=== PATIENT | male | born 1940 | race Caucasian/White ===

== ENCOUNTER 2017-02-26 19:38 | Emergency (ER) | payer OTHER, BC ==
[2017-02-26 19:53] VITALS: PULSE 84; BMI 29.5
[2017-02-26] MEDS ORDERED: ONDANSETRON 4 MG/2 ML VIAL IVPB ONE (20:03)
--- NOTE | 2017-02-26 20:07 | PDOC ---
Attending Attestation - Resident Resident Name: Jaime Don - ED Attending Attestation I have performed the following: I have examined & evaluated the patient, The case was reviewed & discussed with the resident, I agree w/resident's findings & plan, Exceptions are as noted - HPI HPI: 02/26/17 20:08 Pt c/o abdominal pain and umbilcal hernia that has gotten worse the last two weeks - Physicial Exam PE: 02/26/17 20:09 *Physical Exam General Appearance: Yes: Appropriately Dressed. No: Apparent Distress, Intoxicated HEENT: positive: EOMI, PÉREZ, Normal ENT Inspection, Normal Voice, TMs Normal, Pharynx Normal. negative: Pale Conjunctivae, Photophobia, Scleral Icterus (R), Scleral Icterus (L) Neck: positive: Trachea midline, Normal Thyroid, Supple. negative: Tender, Rigid, Carotid bruit, Stridor, Lymphadenopathy (R), Lymphadenopathy (L), Thyromegaly Respiratory/Chest: positive: Lungs Clear, Normal Breath Sounds. negative: Chest Tender, Respiratory Distress, Accessory Muscle Use, Labored Respiration, RES, Crackles, Rales, Rhonchi, Stridor, Wheezing, Dullness Cardiovascular: positive: Regular Rhythm, Regular Rate, S1, S2. negative: Edema , JVD, Murmur, Bradycardia, Tachycardia Vascular Pulses: Dorsalis-Pedis (R): 2+, Doralis-Pedis (L): 2+ Gastrointestinal/Abdominal: positive: Normal Bowel Sounds, Flat, Soft. umbilical defect reducible negative: Tender, Organomegaly, Pulsatile Mass, Increased Bowel Sounds, Decreased BS, Distended, Guarding, Rebound, Hernia, Hepatomegaly, Spleenomegaly Lymphatic: negative: Adenopathy, Tenderness Musculoskeletal: positive: Normal Inspection. negative: CVA Tenderness, Decreased Range of Motion Extremity: positive: Normal Capillary Refill, Normal Inspection, Normal Range of Motion, Pelvis Stable. negative: Tender, Pedal Edema, Swelling, Erythema Integumentary: positive: Normal Color, Dry, Warm. 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 negative: EOM Palsy, Facial Droop, Sensory Deficit 02/26/17 20:12 <Oswaldo Hatfield - Last Filed: 02/26/17 20:12> - Medical Decision Making EXAM#: TYPE/EXAM: RESULT: [id number] CT/ABDOMEN PELVIS CT W/O CONTR Abdomen and pelvis CT (without contrast) Clinical information: fully reducible ventral hernia, no abdominal pain Multiplanar imaging was performed. As requested no intravenous or enteric contrast was administered. No prior CT studies are available at this facility for direct comparison. There is partial imaging of atherosclerotic coronary artery calcifications. A small umbilical hernia is noted into which a very small segment of a mid abdominal small bowel loop mildly bulges. No evidence of pneumoperitoneum, free intraperitoneal fluid or bowel obstruction. There is diffuse colonic diverticulosis without evidence of acute diverticulitis. 0.5 x 0.2 cm and 0.2 cm nonobstructing left renal calculi are seen. There is also a 0.1 cm nonobstructing right renal calculus. A 1 cm left hepatic lobe low-attenuation lesion focus is noted which is difficult to characterize on this exam due to the small size probably representing a cyst or hemangioma. There is a possible subtle 1 cm cyst within the pancreatic tail (transaxial image 50). The remainder the pancreas demonstrates moderate diffuse atrophy. The spleen, gallbladder, and adrenal glands demonstrate no discrete noncontrast pathology. There is no aortic aneurysm. No definite lymphadenopathy is noted. There is moderate to marked atrophy of the right iliopsoas muscle diffusely. No gross intrinsic small bowel pathology is seen. The appendix cannot be definitely visualized. No indirect CT signs of acute appendicitis are visualized. The lower third of the pelvis is obscured due to metallic artifact arising from bilateral hip prostheses. Small left renal hernia containing fat only. Prominent multilevel thoracolumbar degenerative disc changes. Impression: Small umbilical hernia into which a very short segment of a small bowel loop slightly bulges. Possible subtle 1 cm pancreatic L cyst. Correlation with contrast-enhanced MRI is suggested. Alternatively contrast enhanced CT may be performed. A 1 cm left hepatic lobe hypodense focus is noted probably representing a cyst or hemangioma. This finding may also be further evaluated on contrast-enhanced imaging. Reported By: Jose Elias Espana MD 02/26/17 2313 Documentation prepared by Pastora Guerrero, acting as medical social worker for Oswaldo Hatfield DO 02/26/17 23:23 Dr. Orion Leong was paged via phone answering service at this time requesting a call back for doctor to doctor consult. <Pastora Guerrero - Last Filed: 02/26/17 23:24>
[2017-02-26 20:16] LABS: BASOPHIL 0.3 % (0-2.0); EOSINOPHIL 0.5 % (0-4.5); MCHC 34.1 g/dl (32.0-35.9); MEAN CELL VOLUME 90.8 fl (80-96); MEAN PLT VOLUME 8.5 fl (7.5-11.1); NEUTROPHILS 78.1 % (42.8-82.8); PLATELET COUNT 157 K/MM3 (134-434); RDW 13.1 % (11.9-15.9); WHITE BLOOD COUNT 8.5 K/mm3 (4.0-10.0)
--- NOTE | 2017-02-26 20:16 | PDOC ---
History of Present Illness - General Chief Complaint: Pain Stated Complaint: ABDOMINAL Time Seen by Provider: 02/26/17 19:43 History Source: Patient Exam Limitations: No Limitations - History of Present Illness Initial Comments: 02/26/17 20:10 Patient is a 76M with history of Parkinson's, hernia repair, knee, hip and shoulder replacement here today complaining about a mass in his abdomen, located above his umbilicus. He first noticed it a few weeks ago. He describes a mass that comes and goes in his upper abdomen. He endorses assocaited nausea. He denies abdominal pain, vomiting, constipation, fevers and chills. Last bowel movement was this morning. He says that he came in today not because of increased pain, but because he was scared by the mass. He denies history of triple AAA. Past History - Past Medical History Allergies/Adverse Reactions: Allergies Allergy/AdvReac Type Severity Reaction Status Date / Time No Known Allergies Allergy Verified 02/26/17 19:50 Home Medications: Ambulatory Orders Carbidopa/Levodopa [Carbidopa-Levo 25-100 Tab] 1.5 each PO TID 02/07/12 Pramipexole Dihydrochloride [Mirapex -] 0.75 mg PO HS 02/07/12 Rasagiline Mesylate [Azilect] 1 mg PO HS 02/07/12 Aspirin Coated [Ecotrin] 325 mg PO DAILY #30 tablet. 02/09/12 Bimatoprost [Lumigan] 1 drop OU TID 02/26/17 Dorzolamide HCl [Trusopt 2%] 1 drop OU DAILY 02/26/17 Latanoprost 0.005% Eye Drops [Xalatan 0.005% Eye Drops -] 1 drop OU HS 02/26/17 Rotigotine [Neupro] 1 each TD DAILY 02/26/17 Timolol 0.5% [Timoptic 0.5%] 1 drop OU DAILY 02/26/17 CVA: Yes (2011) - Surgical History Orthopedic Surgery: Yes (LOLA KNEE, LOLA HIPS, LOLA SHOULDERS) - Suicide/Smoking/Psychosocial Hx Smoking Status: No Smoking History: Never smoked Have you smoked in the past 12 months: No Number of Cigarettes Smoked Daily: 0 Information on smoking cessation initiated: No Hx Alcohol Use: No Drug/Substance Use Hx: No Substance Use Type: None Hx Substance Use Treatment: No Review of Systems - Review of Systems Comments:: 02/26/17 20:15 GENERAL/CONSTITUTIONAL: No fever or chills. No weakness. HEAD, EYES, EARS, NOSE AND THROAT: No change in vision. No sore throat. CARDIOVASCULAR: No chest pain or shortness of breath RESPIRATORY: No cough, wheezing, or hemoptysis. GASTROINTESTINAL: Positive for nausea. Negative for vomiting, diarrhea or constipation. GENITOURINARY: No dysuria, frequency, or change in urination. SKIN: No rash NEUROLOGIC: No headache, vertigo, loss of consciousness, or change in strength/ sensation. ENDOCRINE: No increased thirst. No abnormal weight change HEMATOLOGIC/LYMPHATIC: No anemia, easy bleeding, or history of blood clots. ALLERGIC/IMMUNOLOGIC: No hives or skin allergy. *Physical Exam - Vital Signs Last Vital Signs Temp Pulse Resp BP Pulse Ox 84 14 183/100 99 02/26/17 19:58 02/26/17 19:48 02/26/17 19:58 02/26/17 19:58 - Physical Exam Comments: 02/26/17 20:16 GENERAL: Awake, alert, and fully oriented, in no acute distress, bilateral hand tremor HEAD: No signs of trauma, normocephalic, atraumatic EYES: PERRLA, EOMI, sclera anicteric, conjunctiva clear ENT: Auricles normal inspection, hearing grossly normal, nares patent, oropharynx clear without exudates. Moist mucosa LUNGS: No distress, speaks full sentences, clear to auscultation bilaterally HEART: Regular rate and rhythm, normal S1 and S2, no murmurs, rubs or gallops, peripheral pulses normal and equal bilaterally. ABDOMEN: Soft, nontender, normoactive bowel sounds. No guarding, no rebound. 4x4 cm reducible hernia above umbilicus EXTREMITIES: Normal inspection, Normal range of motion, no edema. No clubbing or cyanosis. NEUROLOGICAL: Cranial nerves II through XII grossly intact. Normal speech, normal gait, no focal sensorimotor deficits SKIN: Warm, Dry, normal turgor, no rashes or lesions noted. ED Treatment Course - LABORATORY CBC & Chemistry Diagram: 02/26/17 20:10 02/26/17 20:10 - RADIOLOGY Radiology Studies Ordered: Category Date Time Status ABDOMEN & PELVIS CT W/O CONTR [CT] Stat CT Scan 02/26/17 20:08 Ordered Medical Decision Making - Medical Decision Making 02/26/17 20:18 76M with history of hernia repair, parkinson's, and multiple orthopedic surgeries here today complaining of abdominal mass. Mass is a fully reducible hernia. Blood pressure elevated to systolic of 180. No pulsatile masses felt on exam, no history of AAA, low suspicion. Vital signs stable. Will evaluate with labs, ekg and abdominal ct. 02/26/17 20:48 EKG shows normal sinus rhythm with RBBB. Inverted t-waves in II, III, aVF and V3. Troponin added to workup. 02/26/17 21:51 Laboratory Tests 02/26/17 02/26/17 02/26/17 20:10 20:10 20:10 WBC 8.5 D Hgb 14.2 Hct 41.5 Plt Count 157 D INR 1.09 Creatinine 0.9 Creat Clearance w eGFR > 60 Troponin I 02/26/17 20:40 WBC Hgb Hct Plt Count INR Creatinine Creat Clearance w eGFR Troponin I 0.05 D Trop of 0.05, cbc normal, cmp reassuring. 02/26/17 23:21 Prior EKGs reviewed. RBBB in 2011, no images to review. Call out to Dr Leong. CT shows umbilical hernia. Patient informed about pancreatic and liver cyst with recommendations for follow up imaging. 02/26/17 23:29 Spoke with galina Cali with discharge. Will discharge home with PCP follow up. *DC/Admit/Observation/Transfer Diagnosis at time of Disposition: Intra-abdominal hernia - Discharge Dispostion Disposition: HOME Condition at time of disposition: Good Admit: No - Referrals Referrals: Sage Leong MD [Primary Care Provider] - - Patient Instructions Printed Discharge Instructions: DI for Ventral Hernia
[2017-02-26] MEDS ORDERED: ONDANSETRON 4 MG/2 ML VIAL ONE (20:18)
[2017-02-26 20:41] LABS: ALBUMIN 3.8 g/dl (3.4-5.0); ANION GAP 4 (8-16); CALCIUM 9.2 mg/dL (8.5-10.1); CO2 27 mmol/L (21-32); CREATININE 0.9 mg/dL (0.7-1.3); GLUCOSE,RANDOM 121 mg/dL (74-106); SGOT/AST 17 U/L (15-37); SGPT/ALT 13 U/L (12-78)
[2017-02-26 20:44] LABS: ALK PHOS 105 U/L (45-117); BILIRUBIN,TOTAL 0.6 mg/dL (0.2-1.0)
[2017-02-26 20:56] LABS: INR 1.09 (0.82-1.09)
[2017-02-26 21:12] LABS: TROPONIN I 0.05 ng/ml (0.00-0.05)
[2017-02-26] MEDS ORDERED: CARBIDOPA/LEVODOPA 25/100 TABLET (FP) ONE (22:34)
[2017-02-26 23:23] VITALS: BP 156/84
--- NOTE | 2017-02-27 14:10 | EKG ---
Test Reason : Blood Pressure : / mmHG Vent. Rate : 072 BPM Atrial Rate : 072 BPM P-R Int : 152 ms QRS Dur : 134 ms QT Int : 426 ms P-R-T Axes : 043 096 -28 degrees QTc Int : 466 ms NORMAL SINUS RHYTHM RIGHT BUNDLE BRANCH BLOCK T WAVE ABNORMALITY, CONSIDER INFERIOR ISCHEMIA ABNORMAL ECG WHEN COMPARED WITH ECG OF 06-FEB-2012 23:48, NO SIGNIFICANT CHANGE WAS FOUND Confirmed by OPAL DA SILVA, SANIA ([id number]) on 02/27/2017 2:10:27 PM Referred By: Confirmed By:SANIA JOSEPH MD
== END 2017-02-26 23:46 | disposition home or self-care (01) ==
LOC: JER 19:38
PROC: 3E033GC Introduction of Other Therapeutic Substance into Peripheral Vein, Percutaneous Approach (ICD-10-PCS; principal; 2017-02-26)
DX: K45.8 Other specified abdominal hernia without obstruction or gangrene (principal); G20 Parkinson's disease; Z96.643 Presence of artificial hip joint, bilateral; Z96.612 Presence of left artificial shoulder joint; Z96.611 Presence of right artificial shoulder joint; Z96.653 Presence of artificial knee joint, bilateral
CPT/HCPCS: 36415; 74176-TC; 80053; 83690; 84484; 85025; 85610; 86850; 86900; 86901; 93005; 93010; 96374; 99283-25

== ENCOUNTER 2017-09-03 15:43 | Inpatient (IN) | payer OTHER, BC ==
[2017-09-03 17:16] VITALS: BMI 31.0
--- NOTE | 2017-09-03 17:47 | PDOC ---
History of Present Illness - General History Source: Patient Exam Limitations: No Limitations - History of Present Illness Initial Comments: 09/03/17 18:20 The patient is a 77 year old male, with a significant past medical history of CVA(2011) and Parkinsons (on Carbidopa/Levodopa), who presents to the emergency department with worsening leg weakness earlier today. The patient reports his legs have become increasingly weak over the past couple of months, to the point its difficult to get out of bed. However, today, the patient states he was stuck in his garage because he could not ambulate at his baseline. He endorses decreased sensation to left lower extremity. Patient denies any recent leg trauma, erythema, headache, dizziness, or lightheadedness. He denies any chest pain, shortness of breath, diaphoresis, or palpitations. However, per family member patient had a chest pressure which lasted 1 minute and felt generally weak. He reports increased urinary frequency at baseline, but denies any dysuria , hematuria, or urgency. He denies any fever, chills, or cough. He denies any recent travel or sick contacts. Allergies: NKDA Past Surgical History: Bilateral knee replacements, bilateral shoulder, bilateral hips Social History: Non smoker. No ETOH or recreational drug use. PCP: Dr. Leong <Kristina Maya - Last Filed: 09/03/17 20:22> <Perla Rodriguez - Last Filed: 09/03/17 21:06> - General Chief Complaint: Weakness Stated Complaint: WEAKNESS Time Seen by Provider: 09/03/17 17:45 Past History <Kristina Maya - Last Filed: 09/03/17 20:22> - Past Medical History CVA: Yes (2011) COPD: No - Surgical History Orthopedic Surgery: Yes (LOLA KNEE, LOLA HIPS, LOLA SHOULDERS) - Suicide/Smoking/Psychosocial Hx Smoking Status: No Smoking History: Unknown if ever smoked Have you smoked in the past 12 months: No Number of Cigarettes Smoked Daily: 0 Information on smoking cessation initiated: No Hx Alcohol Use: No Drug/Substance Use Hx: No Substance Use Type: None Hx Substance Use Treatment: No <Perla Rodriguez - Last Filed: 09/03/17 21:06> - Past Medical History Allergies/Adverse Reactions: Allergies Allergy/AdvReac Type Severity Reaction Status Date / Time No Known Allergies Allergy Verified 09/03/17 16:27 Home Medications: Ambulatory Orders Pramipexole Dihydrochloride [Mirapex -] 0.75 mg PO HS 02/07/12 Rasagiline Mesylate [Azilect] 1 mg PO HS 02/07/12 Aspirin Coated [Ecotrin] 325 mg PO DAILY #30 tablet. 02/09/12 Latanoprost 0.005% Eye Drops [Xalatan 0.005% Eye Drops -] 1 drop OU HS 02/26/17 Rotigotine [Neupro] 1 each TD DAILY 02/26/17 Carbidopa/Levodopa/Entacapone [Ypjjxslwi-Tjzfzqcc-Lxzm 75 mg] 1 each PO DAILY Review of Systems - Review of Systems Able to Perform ROS?: Yes Comments:: 09/03/17 18:20 GENERAL/CONSTITUTIONAL: No fever or chills. No weakness. HEAD, EYES, EARS, NOSE AND THROAT: No change in vision. No ear pain or discharge. No sore throat. GASTROINTESTINAL: No nausea, vomiting, diarrhea or constipation. GENITOURINARY: No dysuria, frequency, or change in urination. CARDIOVASCULAR: No chest pain or shortness of breath. RESPIRATORY: No cough, wheezing, or hemoptysis. MUSCULOSKELETAL: No joint or muscle swelling or pain. No neck or back pain. SKIN: No rash NEUROLOGIC: Yes bilateral leg weakness, decreased sensation to left leg. No headache, vertigo, loss of consciousness. ENDOCRINE: No increased thirst. No abnormal weight change. HEMATOLOGIC/LYMPHATIC: No anemia, easy bleeding, or history of blood clots. ALLERGIC/IMMUNOLOGIC: No hives or skin allergy. <Kristina Maya - Last Filed: 09/03/17 20:22> *Physical Exam - Vital Signs Last Vital Signs Temp Pulse Resp BP Pulse Ox 97.7 F 85 18 121/81 98 09/03/17 16:23 09/03/17 16:23 09/03/17 16:23 09/03/17 16:23 09/03/17 16:23 - Physical Exam Comments: 09/03/17 18:20 Constitutional: Awake, alert, oriented. No acute distress. Head: Normocephalic. Atraumatic Eyes: PERRL. EOMI. Conjunctivae are not pale. ENT: Mucous membranes are moist and intact. Posterior pharynx without exudates or erythema. Uvula midline. Neck: Supple. Full ROM. No lymphadenopathy. Cardiovascular: Regular rate. Regular rhythm. S1, S2 regular. Distal pulses are 2+ and symmetric. Pulmonary/Chest: No evidence of respiratory distress. Clear to auscultation bilaterally No wheezing, rales or rhonchi. Abdominal: Large ventral hernia easily reducible. Soft and non-distended. There is no tenderness. No rebound, guarding or rigidity. No organomegaly. Good bowel sounds. Back: No CVA tenderness. Musculoskeletal: Chronic venous stasis to bilateral lower extremities s with mild erythema. Decreased sensation to left lower extremity. No edema. No cyanosis. No clubbing. No calf tenderness. Radial/pedal pulses are intact and 2+ bilaterally Skin: Skin is warm and dry. No petechiae. No purpura. Neurological: Pill rolling tremor of bilateral upper extremities. Alert and oriented to person, place, and time. Cranial nerves II-XII are grossly intact. Normal speech. Strength is grossly symmetric. Psychiatric: Good eye contact. Normal interaction, affect and behavior. <Kristina Maya - Last Filed: 09/03/17 20:22> - Vital Signs Last Vital Signs Temp Pulse Resp BP Pulse Ox 97.7 F 85 18 121/81 98 09/03/17 16:23 09/03/17 16:23 09/03/17 16:23 09/03/17 16:23 09/03/17 16:23 <Perla Rodriguez - Last Filed: 09/03/17 21:06> Heart Score/ECG Review - ECG Intrepretation Comment:: 09/03/17 18:21 sinus tach at 128, rbbb, st depression inferiorlateral- most likely rate related <Perla Rodriguez - Last Filed: 09/03/17 21:06> ED Treatment Course - LABORATORY CBC & Chemistry Diagram: 09/03/17 18:05 09/03/17 18:40 <Kristina Maya - Last Filed: 09/03/17 20:22> - LABORATORY CBC & Chemistry Diagram: 09/03/17 18:05 09/03/17 18:40 <Perla Rodriguez - Last Filed: 09/03/17 21:06> Medical Decision Making - Medical Decision Making 09/03/17 20:12 First call placed to Dr. Segal at 20:10. Awaiting call back. Case discussed with Dr. Segal at 20:22. <Kristina Maya - Last Filed: 09/03/17 20:22> - Medical Decision Making 09/03/17 18:16 a/p: 77yo male with difficulty walking today -states worsening gait x months -decreased sensation to R leg x months -hx of parkinson's - no change in meds, is compliant with meds -walks with cane -no falls -no back pain -no cp/sob -mild rhinorrhea -nontoxic in appearance -suspect uti given urinary freq as cause of generalized weakness and inability to ambulate -will check labs, cultures, ekg, cxr -will monitor and reassess 09/03/17 20:09 pt with elevated trop family updated pt does not have a dynamicist call placed to Dr. Segal pt took full dose asa today pt denies cp at this time no sob states he did have chest pressure earlier today when he felt he couldn't walk- only lasted a few moments per the family has not complained of cp since pt will need to be admitted 09/03/17 20:[address] Segal - will see patient in consult requests CTA chest to r/o PE lovenox dose - therapeutic microblog sent to [facility] 09/03/17 21:06 case discussed with Candi from [facility] who accepts pt to service <Perla Rodriguez - Last Filed: 09/03/17 21:06> *DC/Admit/Observation/Transfer - Attestations Scribe Attestion: 09/03/17 18:21 Documentation prepared by Kristina Maya, acting as medical staff physician for Perla Rodriguez DO. <Kristina Maya - Last Filed: 09/03/17 20:22> - Discharge Dispostion Admit: Yes - Attestations Physician Attestion: 09/03/17 20:12 I, Dr. Perla Rodriguez DO, attest that this document has been prepared under my direction and personally reviewed by me in its entirety. I further attest, that it accurately reflects all work, treatment, procedures and medical decision -making performed by me. <Perla Rodriguez - Last Filed: 09/03/17 21:06> Diagnosis at time of Disposition: Weakness, Elevated troponin I level, Heart failure - Discharge Dispostion Condition at time of disposition: Fair - Referrals Referrals: Sage Leong MD [Primary Care Provider] - - Patient Instructions - Post Discharge Activity
[2017-09-03] MEDS ORDERED: SODIUM CHLORIDE 0.9% 1000 ML INFUS.BAG IV ONE (18:21)
[2017-09-03 18:54] LABS: BASO % 0.4 % (0-2.0); EOS % 2.1 % (0-4.5); HEMATOCRIT 42.6 % (35.4-49); HEMOGLOBIN 14.3 GM/dL (11.7-16.9); LYMPH % 13.9 % (8-40); MCH 30.4 pg (25.7-33.7); MCHC 33.5 g/dl (32.0-35.9); MEAN CELL VOLUME 90.9 fl (80-96); MEAN PLT VOLUME 9.2 fl (7.5-11.1); MONO % 8.1 % (3.8-10.2); NEUT % 75.5 % (42.8-82.8); PLATELET COUNT 140 K/MM3 (134-434); RBC 4.69 M/mm3 (4.00-5.60); RDW 14.4 % (11.9-15.9); WHITE BLOOD COUNT 8.5 K/mm3 (4.0-10.0)
[2017-09-03 19:21] LABS: INR 1.05 (0.82-1.09); PROTHROMBIN TIME (PATIENT) 11.9 SEC (9.98-11.88)
[2017-09-03 19:22] LABS: URINE APPEARANCE CLEAR; URINE BILIRUBIN NEGATIVE (<2.0 mg/dL); URINE BLOOD NEGATIVE (NEGATIVE); URINE COLOR LTYELLOW; URINE GLUCOSE (UA) NEGATIVE (NEGATIVE); URINE KETONE NEGATIVE (NEGATIVE); URINE LEUK ESTERASE NEGATIVE (NEGATIVE); URINE NITRITE NEGATIVE (NEGATIVE); URINE PROTEIN NEGATIVE (NEGATIVE); URINE UROBILINOGEN NEGATIVE mg/dL (0.2-1.0)
[2017-09-03 19:33] LABS: ANION GAP 5 (8-16); BLOOD UREA NITROGEN 22 mg/dL (7-18); CHLORIDE 110 mmol/L (98-107); CO2 26 mmol/L (21-32); CREATININE 1.2 mg/dL (0.7-1.3); GLUCOSE,RANDOM 96 mg/dL (74-106); MAGNESIUM 2.2 mg/dL (1.8-2.4); POTASSIUM 4.1 mmol/L (3.5-5.1); SGOT/AST 94 U/L (15-37); SODIUM 141 mmol/L (136-145)
[2017-09-03 19:40] LABS: ALK PHOS 176 U/L (45-117); BILIRUBIN,TOTAL 0.7 mg/dL (0.2-1.0); SGPT/ALT 29 U/L (12-78); TOT PROT 6.9 g/dl (6.4-8.2)
[2017-09-03] MEDS ORDERED: CARBIDOPA/LEVODOPA 25/100 TABLET (FP) PO ONE (20:13)
[2017-09-03] MEDS ORDERED: ENOXAPARIN NA (PORCINE) 100 MG/1 ML DISP.SYRIN SQ ONE ×2 (20:24→22:06)
--- NOTE | 2017-09-03 22:23 | HP ---
CHIEF COMPLAINT: leg weakness PCP: Dang HISTORY OF PRESENT ILLNESS: This is a 77 year old male with a significant PMH of Parkinson's disease and CVA 2011 who presented to the ED with increasing leg weakness over the past few months but today was suddenly much weaker and unable to walk. They report changes to the appearance of his legs: dryness, redness over the past couple months as well. He complains of severe numbness to right foot and moderate to left foot. Upon further questioning he also admits to episodes of chest tightness which typically resolve with rest. He had a similar episode today associated with the worsening of his weakness and inability to walk. Denies SOB or palpitations. ER course was notable for: (1) ECG with sinus tach at 128, rbbb, st depression inferiorlateral (2) CTA neg for pe (3) trop 0.16, BNP 25100 Recent Travel: pt denies PAST MEDICAL HISTORY: Parkinson's disease, CVA 2011 PAST SURGICAL HISTORY: B/L TKR, B/L THR, B/l shoulder repairs B/L inguinal hernia repair Social History: Smoking: pt denies Alcohol: pt denies Drugs: pt denies Family History: mother in her 90s, old age father age 70, vasculitis 1 sister in her 70s, comps of DM 1 daughter s/p ?CVA age 50 Allergies No Known Allergies Allergy (Verified 09/03/17 16:27) HOME MEDICATIONS: 3 Medication Instructions Recorded Pramipexole Dihydrochloride 0.75 mg PO DAILY 02/07/12 [Mirapex -] Rasagiline Mesylate [Azilect] 1 mg PO HS 02/07/12 Aspirin Coated [Ecotrin] 325 mg PO DAILY #30 tablet. 02/09/12 Latanoprost 0.005% Eye Drops 1 drop OU HS 02/26/17 [Xalatan 0.005% Eye Drops -] Rotigotine [Neupro] 1 each TD DAILY 02/26/17 Carbidopa/Levodopa 1.5 each PO TID 09/03/17 [Carbidopa-Levodopa 25-100 Tab] REVIEW OF SYSTEMS CONSTITUTIONAL: Present: generalized weakness, malaise Absent: fever, chills, diaphoresis, loss of appetite, weight change HEENT: Absent: rhinorrhea, nasal congestion, throat pain, throat swelling, difficulty swallowing, mouth swelling, ear pain, eye pain, visual changes CARDIOVASCULAR: Present: chest tightness Absent: chest pain, syncope, palpitations, irregular heart rate, lightheadedness , peripheral edema RESPIRATORY: Absent: cough, shortness of breath, dyspnea with exertion, orthopnea, wheezing, stridor, hemoptysis GASTROINTESTINAL: Absent: abdominal pain, abdominal distension, nausea, vomiting, diarrhea, constipation, melena, hematochezia GENITOURINARY: Absent: dysuria, frequency, urgency, hesitancy, hematuria, flank pain, genital pain MUSCULOSKELETAL: Absent: myalgia, arthralgia, joint swelling, back pain, neck pain SKIN: Absent: rash, itching, pallor HEMATOLOGIC/IMMUNOLOGIC: Absent: easy bleeding, easy bruising, lymphadenopathy, frequent infections ENDOCRINE: Absent: unexplained weight gain, unexplained weight loss, heat intolerance, cold intolerance NEUROLOGIC: Present: numbness to bilat feet Absent: headache, focal weakness or paresthesias, dizziness, unsteady gait, seizure, mental status changes, bladder or bowel incontinence PSYCHIATRIC: Absent: anxiety, depression, suicidal or homicidal ideation, hallucinations. PHYSICAL EXAMINATION Vital Signs - 24 hr 3 09/03/17 09/03/17 16:23 18:51 Temperature 97.7 F 97.6 F Pulse Rate 85 Pulse Rate [ 127 H Left Apical] Respiratory 18 16 Rate Blood Pressure 121/81 Blood Pressure 142/85 [Left Arm] O2 Sat by Pulse 98 97 Oximetry (%) GENERAL: Awake, alert, and fully oriented, in no acute distress. HEAD: Normal with no signs of trauma. EYES: Pupils equal, round and reactive to light, extraocular movements intact, sclera anicteric, conjunctiva clear. No lid lag. EARS, NOSE, THROAT: Ears normal, nares patent, oropharynx clear without exudates. Moist mucous membranes. NECK: Normal range of motion, supple without lymphadenopathy, JVD, or masses. LUNGS: Breath sounds equal, clear to auscultation bilaterally. No wheezes, and no crackles. No accessory muscle use. HEART: Regular rate and rhythm, normal S1 and S2 without murmur, rub or gallop. ABDOMEN: Soft, nontender, not distended, normoactive bowel sounds, no guarding, no rebound, no masses. No hepatomegaly or splenomegaly. MUSCULOSKELETAL: Normal range of motion at all joints. No bony deformities or tenderness. No CVA tenderness. baseline tremor noted, worse right arm UPPER EXTREMITIES: 2+ pulses, warm, well-perfused. No cyanosis. No clubbing. No peripheral edema. LOWER EXTREMITIES: 2+ pulses, warm, well-perfused. No calf tenderness. B/L lower extremities tr peripheral edema, + erythema, + hot to touch, right leg erythema extends to just above knee, left just below knee NEUROLOGICAL: Cranial nerves II-XII intact. Normal speech. gait not observed. Sensation loss bilat feet. PSYCHIATRIC: Cooperative. Good eye contact. Appropriate mood and affect. SKIN: Warm, dry, normal turgor, no rashes or lesions noted, normal capillary refill. Laboratory Results - last 24 hr 3 09/03/17 09/03/17 09/03/17 18:00 18:00 18:05 WBC 8.5 RBC 4.69 Hgb 14.3 Hct 42.6 MCV 90.9 MCH 30.4 MCHC 33.5 RDW 14.4 Plt Count 140 MPV 9.2 Neutrophils % 75.5 Lymphocytes % 13.9 Monocytes % 8.1 Eosinophils % 2.1 D Basophils % 0.4 PT with INR INR PTT (Actin FS) Sodium Potassium Chloride Carbon Dioxide Anion Gap BUN Creatinine Creat Clearance w eGFR Random Glucose Lactic Acid 1.3 Calcium Magnesium Total Bilirubin AST ALT Alkaline Phosphatase Creatine Kinase Troponin I B-Natriuretic Peptide Total Protein Albumin Urine Color Ltyellow Urine Appearance Clear Urine pH 5.0 Ur Specific [place] 1.011 Urine Protein Negative Urine Glucose (UA) Negative Urine Ketones Negative Urine Blood Negative Urine Nitrite Negative Urine Bilirubin Negative Urine Urobilinogen Negative Ur Leukocyte Esterase Negative 3 09/03/17 09/03/17 09/03/17 18:40 18:40 18:40 WBC RBC Hgb Hct MCV MCH MCHC RDW Plt Count MPV Neutrophils % Lymphocytes % Monocytes % Eosinophils % Basophils % PT with INR 11.90 H INR 1.05 PTT (Actin FS) 30.0 Sodium 141 Potassium 4.1 Chloride 110 H Carbon Dioxide 26 Anion Gap 5 L BUN 22 H Creatinine 1.2 D Creat Clearance w eGFR 58.56 Random Glucose 96 D Lactic Acid Calcium 9.0 Magnesium 2.2 Total Bilirubin 0.7 AST 94 H D ALT 29 D Alkaline Phosphatase 176 H D Creatine Kinase 60 Troponin I 0.16 H D B-Natriuretic Peptide 86268.94 H Total Protein 6.9 Albumin 4.0 Urine Color Urine Appearance Urine pH Ur Specific [place] Urine Protein Urine Glucose (UA) Urine Ketones Urine Blood Urine Nitrite Urine Bilirubin Urine Urobilinogen Ur Leukocyte Esterase ECG sinus tach vent rate [address] depression inferolateral leads Radiology Reports CTA chest IMPRESSION: No CT evidence of pulmonary embolism. Interstitial pulmonary vascular congestion which is probably mild, very small bilateral pleural effusions, mild cardiomegaly. Small amount of perihepatic free fluid. Several nonspecific mildly prominent mediastinal lymph nodes are noted which are probably reactive in nature. Correlate with 3 month follow-up CT to evaluate stability. Right shoulder findings as discussed above. Reported By: Jose Elias Espan[place] MD 09/03/17 [id number] ASSESSMENT/PLAN: 77yM with a PMH parkinsons and CVA presented to the ED with generalized weakness , worse today with associated chest tightness, feet numbness and B/L LE redness. elevated troponin/BNP r/o ACS - trend x 2 more, if significant rise would cont lovenox (was given for possible PE that has now been r/o) and start clopidogrel - ASA 325mg taken today at home - metoprolol 25mg x 1 now for tachy - CTA revealed very small bilateral pleural effusions ?CHF - will obtain echo - ED d/w Dr. Segal. Cellulitis B/L LE - ? chronic disease vs acute infection - will start unasyn for now Parkinson's disease - cont home meds DVT PPX - given one full dose lovenox, will await further troponins before initiating DVT PPX FEN - defer IVF - BMP in am - low sodium diet as tolerated. Dispo: pt requires further inpatient management of his emergent condition. Visit type - Emergency Visit Emergency Visit: Yes ED Registration Date: 09/03/17 Care time: The patient presented to the Emergency Department on the above date and was hospitalized for further evaluation of their emergent condition. - New Patient This patient is new to me today: Yes Date on this admission: 09/04/17 - Critical Care Critical Care patient: No Hospitalist Screening - Colonoscopy Questionnaire Colonoscopy Questionnaire: Colonoscopy Questionnaire - Patient: 50 - 75 years old and never had a screening colonoscopy: No History of colon or rectal polyps, or CA: No History of IBD, Crohn's disease or UC: No History of abdominal radiation therapy as a child: No - Relative: 1 with colon or rectal CA, or polyps at age 60 or younger: No Colon or rectal CA diagnosed at age 45 or younger: No Multiple relatives with colon or rectal CA: No - Outcome: Screening Result: Negative Screen
[2017-09-03] MEDS ORDERED: AMPICILLIN NA/SULBACTAM NA 3 GM in SODIUM CHLORIDE 100 ML IVPB ONE (22:45)
[2017-09-03] MEDS ORDERED: METOPROLOL TARTRATE 25 MG TABLET (FP) PO ONE (22:45)
[2017-09-03] MEDS ORDERED: METOPROLOL TARTRATE 25 MG TABLET (FP) ONE (22:49)
[2017-09-04] MEDS ORDERED: METOPROLOL TARTRATE 25 MG TABLET (FP) ONE (02:02)
[2017-09-04] MEDS ORDERED: METOPROLOL TARTRATE 25 MG TABLET (FP) PO ONE (02:05)
[2017-09-04] MEDS ORDERED: ALPRAZolam 0.25 MG TABLET PO ONE (04:32)
[2017-09-04] MEDS: PRAMIPEXOLE DIHYDROCHLORIDE 0.25 MG TABLET PO SCH ×4 (06:51→23:00)
[2017-09-04 07:43] LABS: ANION GAP 8 (8-16); BLOOD UREA NITROGEN 23 mg/dL (7-18); CALCIUM 8.5 mg/dL (8.5-10.1); CHLORIDE 110 mmol/L (98-107); CO2 24 mmol/L (21-32); GLUCOSE,RANDOM 103 mg/dL (74-106); MAGNESIUM 2.2 mg/dL (1.8-2.4); POTASSIUM 4.5 mmol/L (3.5-5.1); SODIUM 142 mmol/L (136-145)
[2017-09-04 07:44] LABS: CREATININE 1.3 mg/dL (0.7-1.3); PHOSPHOROUS 3.9 mg/dL (2.5-4.9)
[2017-09-04 07:46] LABS: BASO % 0.4 % (0-2.0); EOS % 1.9 % (0-4.5); HEMOGLOBIN 14.3 GM/dL (11.7-16.9); LYMPH % 15.4 % (8-40); MCH 30.4 pg (25.7-33.7); MCHC 33.2 g/dl (32.0-35.9); MEAN CELL VOLUME 91.5 fl (80-96); MEAN PLT VOLUME 9.3 fl (7.5-11.1); MONO % 8.3 % (3.8-10.2); PLATELET COUNT 138 K/MM3 (134-434); RDW 14.6 % (11.9-15.9); WHITE BLOOD COUNT 7.5 K/mm3 (4.0-10.0)
[2017-09-04] MEDS: CARBIDOPA/LEVODOPA 25/100 TABLET (FP) PO SCH ×4 (09:42→23:00)
[2017-09-04] MEDS: AMANTADINE HCL 100 MG TABLET PO SCH ×2 (09:42→22:59)
[2017-09-04] MEDS ORDERED: ASPIRIN 325 MG ENTERIC COATED TABLET (FP) PO SCH (10:00)
--- NOTE | 2017-09-04 10:16 | CONSULT ---
Consult - text type - Consultation Consultation Note: Neurology The patient is a 77 year old male, with a significant past medical history of CVA(2011) and Parkinsons (on Carbidopa/Levodopa), who presents to the emergency department with worsening leg weakness. The patient reports his legs have become increasingly weak over the past couple of months, to the point its difficult to get out of bed. However, on day of admission, reportedly the patient states he was stuck in his garage because he could not ambulate at his baseline. He endorses decreased sensation to left lower extremity. Patient denies any recent leg trauma, erythema, headache, dizziness, or lightheadedness. He does see an outside neurologist for Parkinson's and is on 4 medications including Sinemet, Azilect, MIrapex, Neupro. Last saw neurologist 1 month ago. We discussed his reigment including with family and felt it would be best to continue medication the same and for him to see his neurologist as outpatient once discharged. Everyone in agreement. Will try to get physical therapy and hope to improve gait and ambulation. Past History - Past Medical History CVA: Yes (2011) COPD: No - Surgical History Orthopedic Surgery: Yes (LOLA KNEE, LOLA HIPS, LOLA SHOULDERS) - Suicide/Smoking/Psychosocial Hx Smoking Status: No Smoking History: Unknown if ever smoked Have you smoked in the past 12 months: No Number of Cigarettes Smoked Daily: 0 Information on smoking cessation initiated: No Hx Alcohol Use: No Drug/Substance Use Hx: No Substance Use Type: None Hx Substance Use Treatment: No - Past Medical History Allergies/Adverse Reactions: Allergies Allergy/AdvReac Type Severity Reaction Status Date / Time No Known Allergies Allergy Verified 09/03/17 16:27 Home Medications: Ambulatory Orders Pramipexole Dihydrochloride [Mirapex -] 0.75 mg PO HS 02/07/12 Rasagiline Mesylate [Azilect] 1 mg PO HS 02/07/12 Aspirin Coated [Ecotrin] 325 mg PO DAILY #30 tablet. 02/09/12 Latanoprost 0.005% Eye Drops [Xalatan 0.005% Eye Drops -] 1 drop OU HS 02/26/17 Rotigotine [Neupro] 1 each TD DAILY 02/26/17 Carbidopa/Levodopa/Entacapone [Phojqyctq-Ifkdiofq-Azau 75 mg] 1 each PO DAILY Review of Systems GENERAL/CONSTITUTIONAL: No fever or chills. No weakness. HEAD, EYES, EARS, NOSE AND THROAT: No change in vision. No ear pain or discharge. No sore throat. GASTROINTESTINAL: No nausea, vomiting, diarrhea or constipation. GENITOURINARY: No dysuria, frequency, or change in urination. CARDIOVASCULAR: No chest pain or shortness of breath. RESPIRATORY: No cough, wheezing, or hemoptysis. MUSCULOSKELETAL: No joint or muscle swelling or pain. No neck or back pain. SKIN: No rash NEUROLOGIC: Yes bilateral leg weakness, decreased sensation to left leg. No headache, vertigo, loss of consciousness. ENDOCRINE: No increased thirst. No abnormal weight change. HEMATOLOGIC/LYMPHATIC: No anemia, easy bleeding, or history of blood clots. ALLERGIC/IMMUNOLOGIC: No hives or skin allergy. *Physical Exam Vital Signs Period Temp Pulse Resp BP Sys/Marino Pulse Ox Last 24 Hr 97.6 F-97.9 F 85-130 16-18 104-142/57-89 95-98 Awake, alert, oriented. No acute distress. Head: Normocephalic. Atraumatic Eyes: PERRL. EOMI. Conjunctivae are not pale. ENT: Mucous membranes are moist and intact. Posterior pharynx without exudates or erythema. Uvula midline. Neck: Supple. Full ROM. No lymphadenopathy. Cardiovascular: Regular rate. Regular rhythm. S1, S2 regular. Distal pulses are 2+ and symmetric. Pulmonary/Chest: No evidence of respiratory distress. Clear to auscultation bilaterally No wheezing, rales or rhonchi. Abdominal: Large ventral hernia easily reducible. Soft and non-distended. There is no tenderness. No rebound, guarding or rigidity. No organomegaly. Good bowel sounds. Back: No CVA tenderness. Musculoskeletal: Chronic venous stasis to bilateral lower extremities s with mild erythema. Decreased sensation to left lower extremity. No edema. No cyanosis. No clubbing. No calf tenderness. Radial/pedal pulses are intact and 2+ bilaterally Skin: Skin is warm and dry. No petechiae. No purpura. Neurological: Pill rolling tremor of bilateral upper extremities. Alert and oriented to person, place, and time. Cranial nerves II-XII are grossly intact. Normal speech. +cogwheel rigidity, gait deferred Psychiatric: Good eye contact. Normal interaction, affect and behavior. CBCD WBC 7.5 K/mm3 (4.0-10.0) 09/04/17 07:02 RBC 4.70 M/mm3 (4.00-5.60) 09/04/17 07:02 Hgb 14.3 GM/dL (11.7-16.9) 09/04/17 07:02 Hct 43.0 % (35.4-49) 09/04/17 07:02 MCV 91.5 fl (80-96) 09/04/17 07:02 MCHC 33.2 g/dl (32.0-35.9) 09/04/17 07:02 RDW 14.6 % (11.9-15.9) 09/04/17 07:02 Plt Count 138 K/MM3 (134-434) 09/04/17 07:02 MPV 9.3 fl (7.5-11.1) 09/04/17 07:02 CMP Sodium 142 mmol/L (136-145) 09/04/17 07:00 Potassium 4.5 mmol/L (3.5-5.1) 09/04/17 07:00 Chloride 110 mmol/L (98-107) H 09/04/17 07:00 Carbon Dioxide 24 mmol/L (21-32) 09/04/17 07:00 Anion Gap 8 (8-16) 09/04/17 07:00 BUN 23 mg/dL (7-18) H 09/04/17 07:00 Creatinine 1.3 mg/dL (0.7-1.3) 09/04/17 07:00 Creat Clearance w eGFR 58.56 (>60) 09/03/17 18:40 Random Glucose 103 mg/dL (74-106) 09/04/17 07:00 Calcium 8.5 mg/dL (8.5-10.1) 09/04/17 07:00 Total Bilirubin 0.7 mg/dL (0.2-1.0) 09/03/17 18:40 AST 94 U/L (15-37) H D 09/03/17 18:40 ALT 29 U/L (12-78) D 09/03/17 18:40 Alkaline Phosphatase 176 U/L (45-117) H D 09/03/17 18:40 Total Protein 6.9 g/dl (6.4-8.2) 09/03/17 18:40 Albumin 4.0 g/dl (3.4-5.0) 09/03/17 18:40 CARDIAC ENZYMES Creatine Kinase 56 IU/L (39-308) 09/04/17 07:00 Troponin I 0.15 ng/ml (0.00-0.05) H 09/04/17 07:00 L spine X ray completed, awaiting official read Medical Decision Making 77 year old male, with a significant past medical history of CVA(2011) and Parkinsons (on Carbidopa/Levodopa), who presents to the emergency department with worsening leg weakness. The patient reports his legs have become increasingly weak over the past couple of months, to the point its difficult to get out of bed. However, on day of admission, reportedly the patient states he was stuck in his garage because he could not ambulate at his baseline. He endorses decreased sensation to left lower extremity. Patient denies any recent leg trauma, erythema, headache, dizziness, or lightheadedness. He does see an outside neurologist for Parkinson's and is on 4 medications including Sinemet, Azilect, Mirapex, Neupro. Last saw neurologist 1 month ago. We discussed his reigment including with family and felt it would be best to continue medication the same and for him to see his neurologist as outpatient once discharged. Everyone in agreement. Will try to get physical therapy and hope to improve gait and ambulation. L spine x ray completed, awaiting official read. Consider further imaging if indicated. Cardiology also consulted for chest pain elevation in troponin.
--- NOTE | 2017-09-04 10:43 | PN ---
Progress Note, Physician Chief Complaint: Pt sitting in stretcher in no acute distress. Reports he had some chest discomfort/heaviness yesterday which resolved. He felt as his left couldn't move which has been for months. He currently denies any chest pain, sob, n/v/d, fever/chills or unilateral weakness. - Current Medication List Current Medications: Active Medications Amantadine HCl (Symmetrel -) 100 mg PO BID [facility] Last Admin: 09/04/17 09:42 Dose: 100 mg Aspirin (Ecotrin -) 325 mg PO DAILY [facility] Last Admin: 09/04/17 09:42 Dose: 325 mg Carbidopa/Levodopa (Sinemet 25/100 -) 1.5 each PO TID@0700,1400,2000 [facility] Last Admin: 09/04/17 09:42 Dose: 1.5 each CEFTRIAXONE IN IS-OSM DEXTROSE (Ceftriaxone 2 Gm-D5w Bag) 2 gm in 50 mls @ 100 mls/hr IVPB DAILY [facility] Latanoprost (Xalatan 0.005% Eye Drops -) 1 drop OU HS [facility] Non-Formulary Medication (Rasagiline Mesylate [Azilect]) 1 mg PO HS [facility] Non-Formulary Medication (Rotigotine [Neupro]) 1 each TD DAILY [facility] Pramipexole Dihydrochloride (Mirapex -) 0.25 mg PO TID [facility] Last Admin: 09/04/17 06:51 Dose: 0.25 mg - Objective Vital Signs: Vital Signs Temperature 97.9 F 09/04/17 06:58 Pulse Rate 124 H 09/04/17 06:58 Respiratory Rate 18 09/04/17 06:58 Blood Pressure 104/57 09/04/17 06:58 O2 Sat by Pulse Oximetry (%) 97 09/04/17 06:58 Constitutional: Yes: Well Nourished, No Distress Cardiovascular: Yes: Tachycardia, Pulse Irregular. No: Gallop, Murmur Respiratory: Yes: WNL, Regular, CTA Bilaterally, Diminished. No: Rhonchi, SOB, Tachypnea, Wheezes Gastrointestinal: Yes: WNL, Normal Bowel Sounds, Soft. No: Distention, Tenderness Genitourinary: Yes: WNL Extremities: Yes: Erythema (b/l lower extremities) Edema: Yes Edema: LLE: Trace, RLE: 1+ Neurological: Yes: Alert, Oriented, Numbness (RLE), Paresthesia, Tremors Psychiatric: Yes: WNL, Alert, Oriented Labs: CBC, BMP 09/04/17 07:02 09/04/17 07:00 INR, PTT INR 1.05 (0.82-1.09) 09/03/17 18:40 - ....Imaging Chest X-ray: Report Reviewed Cat Scan: Report Reviewed Problem List - Problems (1) New onset atrial flutter Assessment/Plan: new onset, rate 120s, bp sustaining echo reveals reduced lvef tsh ordered discussed with cardiology metoprolol started eliquis started tele will monitor Code(s): I48.92 - UNSPECIFIED ATRIAL FLUTTER (2) Elevated troponin I level Assessment/Plan: trop trending down possibly secondary to demand ischemia cardiology following Code(s): R74.8 - ABNORMAL LEVELS OF OTHER SERUM ENZYMES (3) Parkinson disease Assessment/Plan: chronic, chronic LLE weakness over few months followed by oupt neurologist continue current management neurology following PT as tolerated Code(s): G20 - PARKINSON'S DISEASE (4) Cellulitis Assessment/Plan: increased swelling/erythema LLE ceftriaxone 2g started venous duplex b/l to r/o dvt will monitor Code(s): L03.90 - CELLULITIS, UNSPECIFIED Qualifiers: Site of cellulitis: extremity Site of cellulitis of extremity: lower extremity Laterality: right Qualified Code(s): L03.115 - Cellulitis of right lower limb (5) History of CVA (cerebrovascular accident) Assessment/Plan: will monitor Code(s): Z86.73 - PRSNL HX OF TIA (TIA), AND CEREB INFRC W/O RESID DEFICITS
[2017-09-04] MEDS ORDERED: CEFTRIAXONE IN IS-OSM DEXTROSE 2 GM/50 ML BAG IVPB SCH (11:30)
[2017-09-04] MEDS ORDERED: CEFTRIAXONE 2 GM/100 ML BAG IVPB ONE (11:56)
[2017-09-04] MEDS ORDERED: SODIUM CHLORIDE 500 ML IV STA (12:11)
--- NOTE | 2017-09-04 13:29 | EKG ---
Test Reason : Blood Pressure : / mmHG Vent. Rate : 125 BPM Atrial Rate : 250 BPM P-R Int : 000 ms QRS Dur : 140 ms QT Int : 370 ms P-R-T Axes : 238 116 -51 degrees QTc Int : 534 ms ATRIAL FLUTTER WITH 2:1 A-V CONDUCTION RIGHT BUNDLE BRANCH BLOCK ABNORMAL ECG WHEN COMPARED WITH ECG OF 03-SEP-2017 16:58, ATRIAL FLUTTER HAS REPLACED SINUS RHYTHM T WAVE INVERSION LESS EVIDENT IN ANTERIOR LEADS Confirmed by SANIA JOSEPH MD ([id number]) on 09/04/2017 1:28:50 PM Referred By: Confirmed By:SANIA JOSEPH MD
[2017-09-04] MEDS ORDERED: CARBIDOPA/LEVODOPA 25/250 TABLET (FP) ONE (14:39)
[2017-09-04] MEDS ORDERED: PT OWN MED DRAWER 7, Y5N ONE ×3 (14:40→23:03)
[2017-09-04] MEDS ORDERED: dilTIAZem HCL 50 MG/10 ML - 10 ML VIAL IVPUSH ONE (15:00)
[2017-09-04] MEDS ORDERED: dilTIAZem HCL 50 MG/10 ML - 10 ML VIAL ONE (15:09)
[2017-09-04] MEDS ORDERED: METOPROLOL TARTRATE 5 MG/5 ML VIAL IVPUSH ONE ×2 (15:27→17:41)
--- NOTE | 2017-09-04 15:30 | CON.CARD ---
Cardiology Consult (text) - Consultation Consultation Note: CC: new onset afib/flutter 77 yo with PMH of Parkinson's disease and CVA 2011 who p/w increased LE weakness. + associated worsened vogel, le edema over the past 1-2 months. + chronic heartburn/chest tightness if he takes pills without food. + chronic intermittent dizziness/unstable gait, no recent falls. + chronic tremor. endorses flu 1-2months ago. no orthopnea, pnd, palps, bleeding no f/c/s, n/v/d, cough, congestion, h/a, hematuria, gib. PAST MEDICAL HISTORY: Parkinson's disease, CVA 2011 PAST SURGICAL HISTORY: B/L TKR, B/L THR, B/l shoulder repairs B/L inguinal hernia repair Social History: Smoking: pt denies Alcohol: pt denies Drugs: pt denies Family History: mother in her 90s, old age father age 70, vasculitis 1 sister in her 70s, comps of DM 1 daughter s/p ?CVA age 50 ros: per [facility] Ambulatory Orders Pramipexole Dihydrochloride [Mirapex -] 0.75 mg PO DAILY 02/07/12 Rasagiline Mesylate [Azilect] 1 mg PO HS 02/07/12 Aspirin Coated [Ecotrin] 325 mg PO DAILY #30 tablet. 02/09/12 Latanoprost 0.005% Eye Drops [Xalatan 0.005% Eye Drops -] 1 drop OU HS 02/26/17 Rotigotine [Neupro] 1 each TD DAILY 02/26/17 Amantadine HCl [Amantadine] 100 mg PO BID 09/03/17 Carbidopa/Levodopa [Carbidopa-Levodopa 25-100 Tab] 1.5 each PO TID 09/03/17 Current Medications Amantadine HCl (Symmetrel -) 100 mg PO BID ON LICENSE OF [facility] Last Admin: 09/04/17 09:42 Dose: 100 mg Aspirin (Ecotrin -) 325 mg PO DAILY ON LICENSE OF [facility] Last Admin: 09/04/17 09:42 Dose: 325 mg Carbidopa/Levodopa (Sinemet 25/100 -) 1.5 each PO TID@0700,1400,2000 ON [facility] OF [facility] Last Admin: 09/04/17 14:55 Dose: Not Given CEFTRIAXONE IN IS-OSM DEXTROSE (Ceftriaxone 2 Gm-D5w Bag) 2 gm in 50 mls @ 100 mls/hr IVPB DAILY ON LICENSE OF [facility] Last Admin: 09/04/17 11:57 Dose: 100 mls/hr Latanoprost (Xalatan 0.005% Eye Drops -) 1 drop OU HS ON LICENSE OF [facility] Metoprolol Tartrate (Lopressor Injection -) 5 mg IVPUSH ONCE ONE Stop: 09/04/17 15:28 Non-Formulary Medication (Rasagiline Mesylate [Azilect]) 1 mg PO HS ON LICENSE OF [facility] Non-Formulary Medication (Rotigotine [Neupro]) 1 each TD DAILY ON LICENSE OF [facility] Pramipexole Dihydrochloride (Mirapex -) 0.25 mg PO TID [facility] Last Admin: 09/04/17 14:55 Dose: Not Given Vital Signs - 24 hr 09/03/17 09/03/17 09/03/17 16:23 18:51 23:06 Temperature 97.7 F 97.6 F Pulse Rate 85 Pulse Rate [ 127 H 130 H Left Apical] Respiratory 18 16 18 Rate Blood Pressure 121/81 Blood Pressure 142/85 138/89 [Left Arm] O2 Sat by Pulse 98 97 95 Oximetry (%) 09/04/17 09/04/17 09/04/17 02:24 06:58 11:40 Temperature 97.9 F Pulse Rate Pulse Rate [ 112 H 124 H 127 H Left Apical] Respiratory 18 18 16 Rate Blood Pressure Blood Pressure 104/57 98/58 [Left Arm] O2 Sat by Pulse 97 96 Oximetry (%) 09/04/17 15:00 Temperature Pulse Rate 125 H Pulse Rate [ Left Apical] Respiratory 18 Rate Blood Pressure 120/69 Blood Pressure [Left Arm] O2 Sat by Pulse Oximetry (%) Intake & Output 09/02/17 09/03/17 09/04/17 09/05/17 07:59 07:59 07:59 07:59 Intake Total 360 Balance 360 Weight 210 lb nad, calm jvd elevated, neck supple ctab, nl effort irregularly irregular, tachycardic, nl s1, s2 no mrg + bs soft nt nd ext with trace-1+ edema and chronic venous stasis changes. no c/c + dp/pt aaox3 + tremor no jaundice, diaphoresis CBC, BMP 09/04/17 07:02 09/04/17 07:00 Laboratory Tests 09/03/17 09/03/17 09/04/17 18:40 18:40 01:00 Magnesium Total Bilirubin 0.7 AST 94 H D ALT 29 D Alkaline Phosphatase 176 H D Creatine Kinase 60 56 Troponin I 0.16 H D 0.16 H B-Natriuretic Peptide 24718.94 H 09/04/17 09/04/17 09/04/17 07:00 07:00 12:33 Magnesium 2.2 Total Bilirubin AST ALT Alkaline Phosphatase Creatine Kinase 56 Troponin I 0.15 H 0.12 H B-Natriuretic Peptide ECG: aflutter, rad, rbbb, std/twi. tele: aflutter/fib with RVR 120's-130's. brief dips into the 100's-110's. echo: 1+ lvh. sev red LV fn (global), nl rv size. 1+ red rv sys fn. nl valves. nl rvsp. cta: no PE. + interstitial edema. small amount of periphepatic fluid. see emr for detailed report ASSESSMENT/PLAN 77 yo with PMH of Parkinson's disease and CVA 2011 who p/w increased LE weakness. New onset atrial fib/flutter with . - + lv systolic dysfunction. Will initiate lopressor 25 mg tid. First dose with simultaneous 5 mg IV push. Uptitrate po as needed. Monitor for hypotension. - + hx of prior cva. Will start AC with eliquis. First dose now. (last lovenox was last night). Recommend PT eval to assess fall risk. new systolic dysfunction/acute heart failure exacerbation - systolic dysfunction likely tachymyopathy, but will need to rule out ischemic etiology as mentioned below. - + volume overload. Will initiate IV lasix once rate controlled. Abnormal troponin - intermediate trop elevation with flat trend, likely demand. But in setting of new systolic dysfunction will need stress test once clinically stable.
--- NOTE | 2017-09-04 15:56 | EKG ---
Test Reason : Blood Pressure : / mmHG Vent. Rate : 128 BPM Atrial Rate : 128 BPM P-R Int : 178 ms QRS Dur : 132 ms QT Int : 302 ms P-R-T Axes : 000 115 -51 degrees QTc Int : 440 ms ATRIAL FLUTTER RIGHT BUNDLE BRANCH BLOCK T WAVE ABNORMALITY, CONSIDER INFEROLATERAL ISCHEMIA ABNORMAL ECG Confirmed by OPAL DA SILVA, SANIA ([id number]) on 09/04/2017 3:56:40 PM Referred By: Confirmed By:SANIA JOSEPH MD
[2017-09-04] MEDS ORDERED: METOPROLOL TARTRATE 5 MG/5 ML VIAL ONE (16:28)
[2017-09-04] MEDS ORDERED: APIXABAN 5 MG TABLET PO ONE (17:00)
[2017-09-04] MEDS: PATIENT'S OWN MEDICATION (NON-FORMULARY) (Rotigotine [Neupro] 1 EACH) TD SCH (17:58)
[2017-09-04] MEDS: METOPROLOL TARTRATE 25 MG TABLET (FP) PO SCH ×2 (18:35→22:59)
[2017-09-04] MEDS: [UNRECOGNIZED DRUG - OTHER] PO SCH (22:59)
[2017-09-04] MEDS: LATANOPROST 0.005% OPHTH SOLN 2.5ML BOTTLE OU SCH (23:00)
[2017-09-05] MEDS ORDERED: METOPROLOL TARTRATE 5 MG/5 ML VIAL IVPUSH PRN (05:03)
[2017-09-05] MEDS ORDERED: PT OWN MED DRAWER 7, Y5N ONE (06:07)
[2017-09-05] MEDS: CARBIDOPA/LEVODOPA 25/100 TABLET (FP) PO SCH ×3 (06:12→20:32)
[2017-09-05] MEDS: METOPROLOL TARTRATE 25 MG TABLET (FP) PO SCH (06:12)
[2017-09-05] MEDS: PRAMIPEXOLE DIHYDROCHLORIDE 0.25 MG TABLET PO SCH ×3 (06:12→22:27)
[2017-09-05 08:07] LABS: HEMATOCRIT 44.3 % (35.4-49); HEMOGLOBIN 14.5 GM/dL (11.7-16.9); MCH 29.9 pg (25.7-33.7); MCHC 32.7 g/dl (32.0-35.9); MEAN CELL VOLUME 91.6 fl (80-96); MEAN PLT VOLUME 9.7 fl (7.5-11.1); PLATELET COUNT 136 K/MM3 (134-434); RBC 4.84 M/mm3 (4.00-5.60); RDW 14.7 % (11.9-15.9); WHITE BLOOD COUNT 8.5 K/mm3 (4.0-10.0)
[2017-09-05] MEDS ORDERED: DEXTROSE 5%-WATER - 50 ML IVPB ONE (08:27)
[2017-09-05] MEDS ORDERED: cefTRIAXone SODIUM 1 GM VIAL ONE (08:27)
[2017-09-05 08:32] LABS: ANION GAP 9 (8-16); BLOOD UREA NITROGEN 31 mg/dL (7-18); CALCIUM 8.6 mg/dL (8.5-10.1); CHLORIDE 111 mmol/L (98-107); CO2 23 mmol/L (21-32); CREATININE 1.4 mg/dL (0.7-1.3); GLUCOSE,RANDOM 127 mg/dL (74-106); POTASSIUM 4.2 mmol/L (3.5-5.1); SODIUM 143 mmol/L (136-145)
[2017-09-05 08:33] LABS: MAGNESIUM 2.2 mg/dL (1.8-2.4); PHOSPHOROUS 4.3 mg/dL (2.5-4.9)
[2017-09-05] MEDS: APIXABAN 5 MG TABLET PO SCH ×2 (08:37→20:55)
[2017-09-05] MEDS: TIMOLOL 0.5% OPHTHALMIC SOL 5 ML BOTTLE OU SCH (09:09)
[2017-09-05] MEDS: PATIENT'S OWN MEDICATION (NON-FORMULARY) (Rotigotine [Neupro] 1 EACH) TD SCH (09:16)
[2017-09-05] MEDS ORDERED: SODIUM CHLORIDE 1,000 ML IV SCH (09:30)
--- NOTE | 2017-09-05 09:45 | PN ---
Progress Note (short form) - Note Progress Note: Neurology The patient is a 77 year old male, with a significant past medical history of CVA(2012) and Parkinsons (on Carbidopa/Levodopa), who presents to the emergency department with worsening leg weakness. The patient reports his legs have become increasingly weak over the past couple of months, to the point its difficult to get out of bed. However, on day of admission, reportedly the patient states he was stuck in his garage because he could not ambulate at his baseline. He endorses decreased sensation to left lower extremity. Patient denies any recent leg trauma, erythema, headache, dizziness, or lightheadedness. He does see an outside neurologist for Parkinson's and is on 4 medications including Sinemet, Azilect, MIrapex, Neupro. Last saw neurologist 1 month ago. We discussed his reigment including with family and felt it would be best to continue medication the same and for him to see his neurologist as outpatient once discharged. Everyone in agreement. Physical therapy ordered for improve gait and ambulation. Patient neurologically stable overnight and no new events. We discussed Deep Brain Stimulation as treatment option but this has been discussed with him and he is not interested in this option. Although he is comfortable with surgery, the concept of brain stimulation with an implanted device is not something he wants. Active Medications Amantadine HCl (Symmetrel -) 100 mg PO BID [facility] Last Admin: 09/04/17 22:59 Dose: 100 mg Apixaban (Eliquis -) 5 mg PO BID@0800,2000 [facility] Last Admin: 09/05/17 08:37 Dose: 5 mg Carbidopa/Levodopa (Sinemet 25/100 -) 1.5 each PO TID@0700,1400,2000 [facility] Last Admin: 09/05/17 06:12 Dose: 1.5 each Ceftriaxone Sodium 1 gm/ (Dextrose) 50 mls @ 200 mls/hr IVPB DAILY [facility] Last Admin: 09/05/17 09:15 Dose: 200 mls/hr Latanoprost (Xalatan 0.005% Eye Drops -) 1 drop OU HS [facility] Last Admin: 09/04/17 23:00 Dose: 1 drop Metoprolol Succinate (Toprol Xl -) 50 mg PO BID [facility] Metoprolol Tartrate (Lopressor Injection -) 5 mg IVPUSH Q4H PRN PRN Reason: FOR HR OVER 130 & SBP OVER 100 [facility] Own Med ( Rasagiline Mesylate [Azilect] 1 Mg) 1 mg PO HS [facility] Last Admin: 09/04/17 22:59 Dose: 1 mg Non-Formulary Medication (Rotigotine [Neupro]) 1 each TD DAILY [facility] Last Admin: 09/05/17 09:16 Dose: 1 each Pramipexole Dihydrochloride (Mirapex -) 0.25 mg PO TID [facility] Last Admin: 09/05/17 06:12 Dose: 0.25 mg Timolol Maleate (Timoptic 0.5%) 1 drop OU DAILY [facility] Last Admin: 09/05/17 09:09 Dose: 1 drop *Physical Exam Vital Signs Temperature 97.3 F L 09/05/17 06:00 Pulse Rate 124 H 09/05/17 06:00 Respiratory Rate 18 09/05/17 06:00 Blood Pressure 116/75 09/05/17 06:00 O2 Sat by Pulse Oximetry (%) 97 09/04/17 22:00 Awake, alert, oriented. No acute distress. Head: Normocephalic. Atraumatic Eyes: PERRL. EOMI. Conjunctivae are not pale. ENT: Mucous membranes are moist and intact. Posterior pharynx without exudates or erythema. Uvula midline. Neck: Supple. Full ROM. No lymphadenopathy. Cardiovascular: Regular rate. Regular rhythm. S1, S2 regular. Distal pulses are 2+ and symmetric. Pulmonary/Chest: No evidence of respiratory distress. Clear to auscultation bilaterally No wheezing, rales or rhonchi. Abdominal: Large ventral hernia easily reducible. Soft and non-distended. There is no tenderness. No rebound, guarding or rigidity. No organomegaly. Good bowel sounds. Back: No CVA tenderness. Musculoskeletal: Chronic venous stasis to bilateral lower extremities s with mild erythema. Decreased sensation to left lower extremity. No edema. No cyanosis. No clubbing. No calf tenderness. Radial/pedal pulses are intact and 2+ bilaterally Skin: Skin is warm and dry. No petechiae. No purpura. Neurological: Pill rolling tremor of bilateral upper extremities. Alert and oriented to person, place, and time. Cranial nerves II-XII are grossly intact. Normal speech. +cogwheel rigidity, gait deferred Psychiatric: Good eye contact. Normal interaction, affect and behavior. Active Medications Amantadine HCl (Symmetrel -) 100 mg PO BID [facility] Last Admin: 09/04/17 22:59 Dose: 100 mg Apixaban (Eliquis -) 5 mg PO BID@0800,1999 [facility] Last Admin: 09/05/17 08:37 Dose: 5 mg Carbidopa/Levodopa (Sinemet 25/100 -) 1.5 each PO TID@0700,1400,2000 [facility] Last Admin: 09/05/17 06:12 Dose: 1.5 each Ceftriaxone Sodium 1 gm/ (Dextrose) 50 mls @ 200 mls/hr IVPB DAILY [facility] Last Admin: 09/05/17 09:15 Dose: 200 mls/hr Latanoprost (Xalatan 0.005% Eye Drops -) 1 drop OU [facility] Last Admin: 09/04/17 23:00 Dose: 1 drop Metoprolol Succinate (Toprol Xl -) 50 mg PO BID [facility] Metoprolol Tartrate (Lopressor Injection -) 5 mg IVPUSH Q4H PRN PRN Reason: FOR HR OVER 130 & SBP OVER 100 [facility] ( Rasagiline Mesylate [Azilect] 1 Mg) 1 mg PO HS [facility] Last Admin: 09/04/17 22:59 Dose: 1 mg Non-Formulary Medication (Rotigotine [Neupro]) 1 each TD DAILY [facility] Last Admin: 09/05/17 09:16 Dose: 1 each Pramipexole Dihydrochloride (Mirapex -) 0.25 mg PO TID [facility] Last Admin: 09/05/17 06:12 Dose: 0.25 mg Timolol Maleate (Timoptic 0.5%) 1 drop OU DAILY [facility] Last Admin: 09/05/17 09:09 Dose: 1 drop L spine X ray completed, no fx noted Medical Decision Making 77 year old male, with a significant past medical history of CVA(2011) and Parkinsons (on Carbidopa/Levodopa), who presents to the emergency department with worsening leg weakness. The patient reports his legs have become increasingly weak over the past couple of months, to the point its difficult to get out of bed. However, on day of admission, reportedly the patient states he was stuck in his garage because he could not ambulate at his baseline. He endorses decreased sensation to left lower extremity. Patient denies any recent leg trauma, erythema, headache, dizziness, or lightheadedness. He does see an outside neurologist for Parkinson's and is on 4 medications including Sinemet, Azilect, Mirapex, Neupro. Last saw neurologist 1 month ago. We discussed his reigment including with family and felt it would be best to continue medication the same and for him to see his neurologist as outpatient once discharged. Everyone in agreement. Will try to get physical therapy and hope to improve gait and ambulation. L spine x ray completed, no fractures noted. Otherwise neurologically stable at this time.
[2017-09-05] MEDS ORDERED: PATIENT'S OWN MEDICATION (NON-FORMULARY) (Rotigotine [Neupro] 1 EACH) TD SCH (10:00)
[2017-09-05] MEDS ORDERED: CEFTRIAXONE 1 GM in DEXTROSE 5%-WATER - 50 ML IVPB SCH (10:00)
[2017-09-05] MEDS: AMANTADINE HCL 100 MG TABLET PO SCH ×2 (10:28→22:28)
--- NOTE | 2017-09-05 11:03 | PN ---
Progress Note, Physician Chief Complaint: Pt sitting in chair in no acute distress. Reports mild nausea after meds. Otherwise, he currently denies any chest pain, sob, n/v/d, fever/chills or unilateral weakness. - Current Medication List Current Medications: Active Medications Amantadine HCl (Symmetrel -) 100 mg PO BID [facility] Last Admin: 09/05/17 10:28 Dose: 100 mg Apixaban (Eliquis -) 5 mg PO BID@0800,1999 [facility] Last Admin: 09/05/17 08:37 Dose: 5 mg Carbidopa/Levodopa (Sinemet 25/100 -) 1.5 each PO TID@0700,1400,1999 [facility] Last Admin: 09/05/17 06:12 Dose: 1.5 each Ceftriaxone Sodium 1 gm/ (Dextrose) 50 mls @ 200 mls/hr IVPB DAILY [facility] Last Admin: 09/05/17 09:15 Dose: 200 mls/hr Latanoprost (Xalatan 0.005% Eye Drops -) 1 drop OU HS [facility] Last Admin: 09/04/17 23:00 Dose: 1 drop Metoprolol Succinate (Toprol Xl -) 50 mg PO BID [facility] Last Admin: 09/05/17 09:49 Dose: 50 mg Metoprolol Tartrate (Lopressor Injection -) 5 mg IVPUSH Q4H PRN PRN Reason: FOR HR OVER 130 & SBP OVER 100 [facility] ( Rasagiline Mesylate [Azilect] 1 Mg) 1 mg PO HS [facility] Last Admin: 09/04/17 22:59 Dose: 1 mg Non-Formulary Medication (Rotigotine [Neupro]) 1 each TD DAILY [facility] Last Admin: 09/05/17 09:16 Dose: 1 each Pramipexole Dihydrochloride (Mirapex -) 0.25 mg PO TID [facility] Last Admin: 09/05/17 06:12 Dose: 0.25 mg Timolol Maleate (Timoptic 0.5%) 1 drop OU DAILY [facility] Last Admin: 09/05/17 09:09 Dose: 1 drop - Objective Vital Signs: Vital Signs Temperature 98 F 09/05/17 10:00 Pulse Rate 126 H 09/05/17 10:00 Respiratory Rate 20 09/05/17 10:00 Blood Pressure 110/54 09/05/17 10:00 O2 Sat by Pulse Oximetry (%) 97 09/05/17 09:00 Constitutional: Yes: Well Nourished, No Distress, Calm Cardiovascular: Yes: Tachycardia, Pulse Irregular Respiratory: Yes: WNL, Regular, CTA Bilaterally. No: Accessory Muscle Use, SOB , Tachypnea, Wheezes Gastrointestinal: Yes: WNL, Normal Bowel Sounds, Soft. No: Distention, Tenderness Genitourinary: Yes: WNL Extremities: Yes: Erythema (chronic, b/l lower extremities) Edema: Yes Edema: LLE: Trace, RLE: 1+ Neurological: Yes: WNL, Alert, Oriented Psychiatric: Yes: WNL, Alert, Oriented Labs: CBC, BMP 09/05/17 07:42 09/05/17 07:42 INR, PTT INR 1.05 (0.82-1.09) 09/03/17 18:40 - ....Imaging Ultrasound: Pending Problem List - Problems (1) New onset atrial flutter Code(s): I48.92 - UNSPECIFIED ATRIAL FLUTTER (2) Elevated troponin I level Code(s): R74.8 - ABNORMAL LEVELS OF OTHER SERUM ENZYMES (3) Parkinson disease Code(s): G20 - PARKINSON'S DISEASE (4) Cellulitis Code(s): L03.90 - CELLULITIS, UNSPECIFIED Qualifiers: Site of cellulitis: extremity Site of cellulitis of extremity: lower extremity Laterality: right Qualified Code(s): L03.115 - Cellulitis of right lower limb (5) History of CVA (cerebrovascular accident) Code(s): Z86.73 - PRSNL HX OF TIA (TIA), AND CEREB INFRC W/O RESID DEFICITS (6) KELLY (acute kidney injury) Code(s): N17.9 - ACUTE KIDNEY FAILURE, UNSPECIFIED (7) Atrial flutter Code(s): I48.92 - UNSPECIFIED ATRIAL FLUTTER (8) Heart failure Code(s): I50.9 - HEART FAILURE, UNSPECIFIED Qualifiers: Heart failure type: systolic Heart failure chronicity: acute Qualified Code(s): I50.21 - Acute systolic (congestive) heart failure Assessment/Plan (1) New onset atrial flutter Assessment/Plan: new onset, rate 120s, bp wnl, pt asymptomatic echo reveals reduced lvef tsh wnl discussed with cardiology metoprolol adjusted for better rate controll eliquis tele will monitor Code(s): I48.92 - UNSPECIFIED ATRIAL FLUTTER (2) Elevated troponin I level Assessment/Plan: trop trending down possibly secondary to demand ischemia cardiology following Code(s): R74.8 - ABNORMAL LEVELS OF OTHER SERUM ENZYMES (3) Parkinson disease Assessment/Plan: chronic, chronic LLE weakness over few months followed by oupt neurologist continue current management neurology following PT as tolerated Code(s): G20 - PARKINSON'S DISEASE (4) Cellulitis Assessment/Plan: increased swelling/erythema LLE, improved ceftriaxone 1g venous duplex b/l to r/o dvt will monitor Code(s): L03.90 - CELLULITIS, UNSPECIFIED Qualifiers: Site of cellulitis: extremity Site of cellulitis of extremity: lower extremity Laterality: right Qualified Code(s): L03.115 - Cellulitis of right lower limb (5) History of CVA (cerebrovascular accident) Assessment/Plan: continue ASA Code(s): Z86.73 - PRSNL HX OF TIA (TIA), AND CEREB INFRC W/O RESID DEFICITS (6) KELLY (acute kidney injury) Assessment/Plan: pre-renal monitor for now ivf per cardiology Code(s): N17.9 - ACUTE KIDNEY FAILURE, UNSPECIFIED (7) Heart failure Assessment/Plan: acute, reduced lvef stress test outpt cardiology following Code(s): I50.9 - HEART FAILURE, UNSPECIFIED Qualifiers: Heart failure type: systolic Heart failure chronicity: acute Qualified Code(s): I50.21 - Acute systolic (congestive) heart failure
[2017-09-05] MEDS ORDERED: ONDANSETRON *ODT* 4 MG TABLET SL PRN (11:11)
--- NOTE | 2017-09-05 11:18 | PN ---
Progress Note (short form) - Note Progress Note: s: no cp sob palps dizzy o: Vital Signs Period Temp Pulse Resp BP Sys/Marino Pulse Ox Last 24 Hr 97.3 F-98 F 124-137 16-20 98-136/54-94 96-97 nad, calm jvd elevated, neck supple ctab, nl effort irregularly irregular, tachycardic, nl s1, s2 no mrg + bs soft nt nd ext with trace edema and chronic venous stasis changes. no c/c aaox3 + tremor no jaundice, diaphoresis Current Medications Generic Name Dose Route Start Last Admin Trade Name Freq PRN Reason Stop Dose Admin Amantadine HCl 100 mg 09/04/17 10:00 09/05/17 10:28 Symmetrel - PO 100 mg BID [facility] Administration Apixaban 5 mg 09/05/17 08:00 09/05/17 08:37 Eliquis - PO 5 mg BID@0800,1999 [facility] Administration Carbidopa/Levodopa 1.5 each 09/04/17 07:00 09/05/17 06:12 Sinemet 25/100 - PO 1.5 each TID@0700,1400,1999 [facility] Administration Ceftriaxone Sodium 1 gm/ 50 mls @ 200 mls/hr 09/05/17 10:00 09/05/17 09:15 Dextrose IVPB 200 mls/hr DAILY [facility] Administration Latanoprost 1 drop 09/04/17 22:00 09/04/17 23:00 Xalatan 0.005% Eye Drops - OU 1 drop HS [facility] Administration Metoprolol Succinate 50 mg 09/05/17 10:00 09/05/17 09:49 Toprol Xl - PO 50 mg BID [facility] Administration Metoprolol Tartrate 5 mg 09/05/17 05:03 Lopressor Injection - IVPUSH Q4H PRN FOR HR OVER 130 & SBP OVER 100 [facility] Own Med ( 1 mg 09/04/17 22:00 09/04/17 22:59 Rasagiline Mesylate PO 1 mg [Azilect] 1 Mg) HS [facility] Administration Non-Formulary Medication 1 each 09/04/17 17:45 09/05/17 09:16 Rotigotine [Neupro] TD 1 each DAILY [facility] Administration Ondansetron HCl 4 mg 09/05/17 11:11 Zofran Odt - SL Q8H PRN NAUSEA Pramipexole Dihydrochloride 0.25 mg 09/04/17 06:00 09/05/17 06:12 Mirapex - PO 0.25 mg TID [facility] Administration Timolol Maleate 1 drop 09/05/17 10:00 09/05/17 09:09 Timoptic 0.5% OU 1 drop DAILY [facility] Administration CBC, BMP 09/05/17 07:42 09/05/17 07:42 ECG: aflutter, rad, rbbb, std/twi. tele: aflutter with RVR 120's , brief nsvt echo 08/2017: 1+ lvh. sev red LV fn (global), nl rv size. 1+ red rv sys fn. nl valves. nl rvsp. cta: no PE. + interstitial edema. small amount of periphepatic fluid. see emr for detailed report ASSESSMENT/PLAN 77 yo with PMH of Parkinson's disease and CVA 2011 who p/w increased LE weakness. New onset atrial fib/flutter -rate still fast, will increase to toprol 50 bid, cont tele - + hx of prior cva. started AC with eliquis. new systolic dysfunction/heart failure - systolic dysfunction likely tachymyopathy, but will need to rule out ischemic etiology as mentioned below. - prn lasix for now, monitor cr trend (up today) Abnormal troponin - intermediate trop elevation with flat trend, likely demand. But in setting of new systolic dysfunction will need stress test once clinically stable.
[2017-09-05] MEDS: [UNRECOGNIZED DRUG - OTHER] PO SCH (22:28)
[2017-09-05] MEDS: LATANOPROST 0.005% OPHTH SOLN 2.5ML BOTTLE OU SCH (22:29)
[2017-09-06] MEDS: CARBIDOPA/LEVODOPA 25/100 TABLET (FP) PO SCH ×3 (06:42→18:17)
[2017-09-06] MEDS: PRAMIPEXOLE DIHYDROCHLORIDE 0.25 MG TABLET PO SCH ×3 (06:42→22:13)
[2017-09-06 07:20] LABS: BASO % 0.4 % (0-2.0); EOS % 1.2 % (0-4.5); HEMATOCRIT 46.4 % (35.4-49); HEMOGLOBIN 15.2 GM/dL (11.7-16.9); LYMPH % 16.8 % (8-40); MCHC 32.9 g/dl (32.0-35.9); MEAN CELL VOLUME 91.3 fl (80-96); MEAN PLT VOLUME 9.5 fl (7.5-11.1); MONO % 7.3 % (3.8-10.2); NEUT % 74.3 % (42.8-82.8); PLATELET COUNT 145 K/MM3 (134-434); RBC 5.09 M/mm3 (4.00-5.60); RDW 14.7 % (11.9-15.9); WHITE BLOOD COUNT 10.9 K/mm3 (4.0-10.0)
[2017-09-06 07:49] LABS: ANION GAP 8 (8-16); BLOOD UREA NITROGEN 34 mg/dL (7-18); CALCIUM 8.6 mg/dL (8.5-10.1); CHLORIDE 109 mmol/L (98-107); CO2 22 mmol/L (21-32); GLUCOSE,RANDOM 117 mg/dL (74-106); SODIUM 139 mmol/L (136-145)
[2017-09-06 07:50] LABS: CREATININE 1.5 mg/dL (0.7-1.3)
[2017-09-06] MEDS: APIXABAN 5 MG TABLET PO SCH ×2 (08:03→21:30)
[2017-09-06] MEDS ORDERED: VANCOMYCIN 1,000 MG in DEXTROSE 5%-WATER - 250 ML IVPB ONE (10:00)
[2017-09-06] MEDS: LACTOBACILLUS ACIDOPHILUS 1 TABLET PO SCH (10:09)
[2017-09-06] MEDS: TIMOLOL 0.5% OPHTHALMIC SOL 5 ML BOTTLE OU SCH (10:12)
[2017-09-06] MEDS: AMANTADINE HCL 100 MG TABLET PO SCH ×2 (10:13→22:13)
[2017-09-06] MEDS: PATIENT'S OWN MEDICATION (NON-FORMULARY) (Rotigotine [Neupro] 1 EACH) TD SCH (10:13)
--- NOTE | 2017-09-06 10:27 | PN ---
Progress Note, Physician History of Present Illness: No cardiovascular complaints No palpitations No chest pain Tele: Aflut 120s - Current Medication List Current Medications: Active Medications Amantadine HCl (Symmetrel -) 100 mg PO BID [facility] Last Admin: 09/06/17 10:13 Dose: 100 mg Apixaban (Eliquis -) 5 mg PO BID@0800,1999 [facility] Last Admin: 09/06/17 08:03 Dose: 5 mg Carbidopa/Levodopa (Sinemet 25/100 -) 1.5 each PO TID@0700,1400,1999 [facility] Last Admin: 09/06/17 06:42 Dose: 1.5 each Vancomycin HCl 1,000 mg/ (Dextrose) 250 mls @ 166.667 mls/hr IVPB ONCE ONE PRN Reason: Protocol Stop: 09/06/17 11:29 Lactobacillus Acidophilus (Bacid -) 1 cap PO DAILY [facility] Last Admin: 09/06/17 10:09 Dose: 1 cap Latanoprost (Xalatan 0.005% Eye Drops -) 1 drop OU [facility] Last Admin: 09/05/17 22:29 Dose: 1 drop Metoprolol Succinate (Toprol Xl -) 50 mg PO BID [facility] Last Admin: 09/06/17 10:10 Dose: 50 mg Metoprolol Tartrate (Lopressor Injection -) 5 mg IVPUSH Q4H PRN PRN Reason: FOR HR OVER 130 & SBP OVER 100 [facility] ( Rasagiline Mesylate [Azilect] 1 Mg) 1 mg PO HS [facility] Last Admin: 09/05/17 22:28 Dose: 1 mg Non-Formulary Medication (Rotigotine [Neupro]) 1 each TD DAILY [facility] Last Admin: 09/06/17 10:13 Dose: 1 each Ondansetron HCl (Zofran Odt -) 4 mg SL Q8H PRN PRN Reason: NAUSEA Last Admin: 09/05/17 12:32 Dose: 4 mg Pramipexole Dihydrochloride (Mirapex -) 0.25 mg PO TID [facility] Last Admin: 09/06/17 06:42 Dose: 0.25 mg Timolol Maleate (Timoptic 0.5%) 1 drop OU DAILY [facility] Last Admin: 09/06/17 10:12 Dose: 1 drop - Objective Vital Signs: Vital Signs Temperature 98 F 09/06/17 10:16 Pulse Rate 121 H 09/06/17 10:16 Respiratory Rate 18 09/06/17 10:16 Blood Pressure 135/88 09/06/17 10:16 O2 Sat by Pulse Oximetry (%) 98 09/05/17 21:00 Constitutional: Yes: No Distress Eyes: Yes: WNL HENT: Yes: WNL Neck: Yes: WNL Cardiovascular: Yes: Tachycardia Respiratory: Yes: Regular, CTA Bilaterally Gastrointestinal: Yes: Normal Bowel Sounds Musculoskeletal: Yes: WNL Extremities: Yes: WNL Edema: No Labs: CBC, BMP 09/06/17 06:58 09/06/17 06:58 INR, PTT INR 1.05 (0.82-1.09) 09/03/17 18:40 Assessment/Plan 77 yo with PMH of Parkinson's disease and CVA 2011 who p/w increased LE weakness. New onset atrial fib/flutter -rate remains fast, will change to metoprolol tartrate and increase to 50mg PO TID, cont tele - + hx of prior cva. started and tolerating AC with eliquis. new systolic dysfunction/heart failure - systolic dysfunction likely tachymyopathy, but will need to rule out ischemic etiology as mentioned below. -appears euvolemic today, creat 1.5 today. Hold on Lasix today Abnormal troponin - intermediate trop elevation with flat trend, likely demand. But in setting of new systolic dysfunction will need stress test once clinically stable.
--- NOTE | 2017-09-06 11:27 | PN ---
Progress Note, Physician Chief Complaint: Pt sitting in chair in no acute distress. denies any chest pain, lightheadedness , sob, n/v/d, fever/chills or unilateral weakness. - Current Medication List Current Medications: Active Medications Amantadine HCl (Symmetrel -) 100 mg PO BID [facility] Last Admin: 09/06/17 10:13 Dose: 100 mg Apixaban (Eliquis -) 5 mg PO BID@0800,2000 [facility] Last Admin: 09/06/17 08:03 Dose: 5 mg Carbidopa/Levodopa (Sinemet 25/100 -) 1.5 each PO TID@0700,1400,1999 [facility] Last Admin: 09/06/17 06:42 Dose: 1.5 each Vancomycin HCl 1,000 mg/ (Dextrose) 250 mls @ 166.667 mls/hr IVPB ONCE ONE PRN Reason: Protocol Stop: 09/06/17 11:29 Last Admin: 09/06/17 10:34 Dose: 166.667 mls/hr Lactobacillus Acidophilus (Bacid -) 1 cap PO DAILY [facility] Last Admin: 09/06/17 10:09 Dose: 1 cap Latanoprost (Xalatan 0.005% Eye Drops -) 1 drop OU [facility] Last Admin: 09/05/17 22:29 Dose: 1 drop Metoprolol Succinate (Toprol Xl -) 50 mg PO BID [facility] Last Admin: 09/06/17 10:10 Dose: 50 mg Metoprolol Tartrate (Lopressor Injection -) 5 mg IVPUSH Q4H PRN PRN Reason: FOR HR OVER 130 & SBP OVER 100 [facility] ( Rasagiline Mesylate [Azilect] 1 Mg) 1 mg PO HS [facility] Last Admin: 09/05/17 22:28 Dose: 1 mg Non-Formulary Medication (Rotigotine [Neupro]) 1 each TD DAILY [facility] Last Admin: 09/06/17 10:13 Dose: 1 each Ondansetron HCl (Zofran Odt -) 4 mg SL Q8H PRN PRN Reason: NAUSEA Last Admin: 09/05/17 12:32 Dose: 4 mg Pramipexole Dihydrochloride (Mirapex -) 0.25 mg PO TID [facility] Last Admin: 09/06/17 06:42 Dose: 0.25 mg Timolol Maleate (Timoptic 0.5%) 1 drop OU DAILY [facility] Last Admin: 09/06/17 10:12 Dose: 1 drop - Objective Vital Signs: Vital Signs Temperature 98 F 09/06/17 10:16 Pulse Rate 121 H 09/06/17 10:16 Respiratory Rate 18 09/06/17 10:16 Blood Pressure 135/88 09/06/17 10:16 O2 Sat by Pulse Oximetry (%) 88 L 09/06/17 08:00 Constitutional: Yes: Well Nourished, No Distress Cardiovascular: Yes: Tachycardia, Pulse Irregular. No: Gallop, Rub Respiratory: Yes: WNL, Regular, CTA Bilaterally. No: Accessory Muscle Use, SOB , Tachypnea, Wheezes Gastrointestinal: Yes: WNL, Normal Bowel Sounds, Soft. No: Distention, Tenderness Genitourinary: Yes: WNL Edema: Yes Edema: LLE: Trace, RLE: 1+ Neurological: Yes: Alert, Oriented, Tremors Psychiatric: Yes: WNL, Alert, Oriented Labs: CBC, BMP 09/06/17 06:58 09/06/17 06:58 INR, PTT INR 1.05 (0.82-1.09) 09/03/17 18:40 Problem List - Problems (1) New onset atrial flutter Code(s): I48.92 - UNSPECIFIED ATRIAL FLUTTER (2) Elevated troponin I level Code(s): R74.8 - ABNORMAL LEVELS OF OTHER SERUM ENZYMES (3) Parkinson disease Code(s): G20 - PARKINSON'S DISEASE (4) Cellulitis Code(s): L03.90 - CELLULITIS, UNSPECIFIED Qualifiers: Site of cellulitis: extremity Site of cellulitis of extremity: lower extremity Laterality: right Qualified Code(s): L03.115 - Cellulitis of right lower limb (5) History of CVA (cerebrovascular accident) Code(s): Z86.73 - PRSNL HX OF TIA (TIA), AND CEREB INFRC W/O RESID DEFICITS (6) KELLY (acute kidney injury) Code(s): N17.9 - ACUTE KIDNEY FAILURE, UNSPECIFIED (7) Atrial flutter Code(s): I48.92 - UNSPECIFIED ATRIAL FLUTTER (8) Heart failure Code(s): I50.9 - HEART FAILURE, UNSPECIFIED Qualifiers: Heart failure type: systolic Heart failure chronicity: acute Qualified Code(s): I50.21 - Acute systolic (congestive) heart failure (9) Leukocytosis Code(s): D72.829 - ELEVATED WHITE BLOOD CELL COUNT, UNSPECIFIED (10) Positive blood culture Code(s): R78.81 - BACTEREMIA Assessment/Plan (1) New onset atrial flutter Assessment/Plan: new onset, rate 120s, bp wnl, pt asymptomatic echo reveals reduced lvef tsh wnl case discussed with , cardiology, advised to start metoprolol tartrate 50tid eliquis tele cardiology following Code(s): I48.92 - UNSPECIFIED ATRIAL FLUTTER (2) Elevated troponin I level Assessment/Plan: trop trending down possibly demand ischemia cardiology following Code(s): R74.8 - ABNORMAL LEVELS OF OTHER SERUM ENZYMES (3) Parkinson disease Assessment/Plan: chronic, chronic LLE weakness over few months followed by oupt neurologist continue current management neurology following PT as tolerated Code(s): G20 - PARKINSON'S DISEASE (4) Cellulitis Assessment/Plan: increased swelling/erythema LLE, improved ceftriaxone d/c'd venous duplex b/l to r/o dvt pending Code(s): L03.90 - CELLULITIS, UNSPECIFIED Qualifiers: Site of cellulitis: extremity Site of cellulitis of extremity: lower extremity Laterality: right Qualified Code(s): L03.115 - Cellulitis of right lower limb (5) History of CVA (cerebrovascular accident) Assessment/Plan: continue ASA Code(s): Z86.73 - PRSNL HX OF TIA (TIA), AND CEREB INFRC W/O RESID DEFICITS (6) KELLY (acute kidney injury) Assessment/Plan: trend up will monitor for now Code(s): N17.9 - ACUTE KIDNEY FAILURE, UNSPECIFIED (7) Heart failure Assessment/Plan: acute, reduced lvef stress test outpt cardiology following Code(s): I50.9 - HEART FAILURE, UNSPECIFIED Qualifiers: Heart failure type: systolic Heart failure chronicity: acute Qualified Code(s): I50.21 - Acute systolic (congestive) heart failure (9) Leukocytosis Assessment/Plan: trend up today afebrile, 1 blood culture positive gram positive cocci vancomycin 1g x 1 ID consulted Code(s): D72.829 - ELEVATED WHITE BLOOD CELL COUNT, UNSPECIFIED (10) Positive blood culture Assessment/Plan: as above Code(s): R78.81 - BACTEREMIA
--- NOTE | 2017-09-06 12:14 | PN ---
Progress Note (short form) - Note Progress Note: ID consult dictated 77 year old man with Parkinsons disease, prior cva admitted with bilateral leg heaviness and weakness now with afib/aflutter, chf, abnl toponin has been on rocephin for cellulitis (has chronic venous stasis) asked to see for positive blood culture (one of four) from admission no fevers or chills no skin breakdown history of bilateral knee/shoulder/hip replacements- the most rescent over 10 years ago suspect contaminant given vancomycin today will f/u blood culture in am cellulitis appears resolved d/w family at bedside Problem List - Problems (1) Positive blood culture Code(s): R78.81 - BACTEREMIA (2) Weakness Code(s): R53.1 - WEAKNESS (3) Cellulitis Code(s): L03.90 - CELLULITIS, UNSPECIFIED Qualifiers: Site of cellulitis: extremity Site of cellulitis of extremity: lower extremity Laterality: right Qualified Code(s): L03.115 - Cellulitis of right lower limb
--- NOTE | 2017-09-06 12:56 | CONS ---
DATE OF CONSULTATION: DATE OF DICTATION: 09/06/2017 CONSULTATION REQUESTED BY: Jorge Malin MD This is a 77-year-old man. He lives at home with his family, has a history of Parkinson's disease and CVA. He has had increasing leg weakness over the last several months that progressed to the point where he had difficulty walking. He came to the emergency room with these complaints. He also admitted to having some chest tightness. He was started on ceftriaxone for a possible cellulitis of his both his legs, right greater than left. He has a history of chronic venous stasis. Since his admission he was noted to have positive troponins. He has been evaluated by Cardiology, has been found to be in new atrial fibrillation/flutter with CHF and abnormal troponins. He is undergoing a cardiology workup. He denies any fevers, chills. He otherwise feels well. The family reports that his legs are back to their normal color. PAST MEDICAL HISTORY: Notable for history of Parkinson's disease and the CVA. He is status post bilateral total knee replacements, total hip replacements, and shoulder replacements, the most recent of which was done over 10 years ago. He has had bilateral inguinal hernia repairs as well. FAMILY HISTORY: Notable for vasculitis in his father and a sister with diabetes. His mother in her 90s of old age. SOCIAL HISTORY: There is no history of any cigarette, alcohol, or substance use. He lives at home with his family. REVIEW OF SYSTEMS: He has had a good appetite. He has no dysuria or trouble urinating. His chest tightness has resolved. The erythema of his feet has resolved. PHYSICAL EXAMINATION: VITAL SIGNS: He has had no fever. Temperature is 98. Pulse is 121 and irregular. Blood pressure is 135/88. Respiratory rate is 18. HEENT: He is normocephalic. His eyes are anicteric. NECK: Supple. LUNGS: Diminished breath sounds at the bases. HEART: Tachycardic and irregular. ABDOMEN: Soft, nontender. SKIN: He has no skin breakdown. EXTREMITIES: Notable for bilateral venous stasis changes. He has no open sores on his feet, legs, or back. LABORATORY: Notable for a white count of 10,000, hemoglobin 15.2, platelets at 145. BUN and creatinine are 34 and 1.5. Troponin is 0.09 this morning. Urinalysis is negative. Blood culture: One of 4 drawn on the is positive for gram-positive cocci in clusters. This morning he received a dose of vancomycin. He had a chest CTA done in the emergency room, was notable for no PE, with some pulmonary vascular congestion that is mild. SUMMARY: This is a 77-year-old man who I am asked to see for a positive blood culture. I suspect this is a contaminant as it is now growing in 1 of 4 bottles on day 3. He was given vancomycin today. Will follow up blood culture results in the morning. His cellulitis appears resolved, so I do not think he needs further ceftriaxone. He is being followed by Cardiology for his other acute problems which include atrial fibrillation, congestive heart failure, and abnormal troponins. I spoke at length with the family who is at the bedside. All questions were answered. ANNEMARIE SANTILLAN M.D. [id number]
[2017-09-06] MEDS: METOPROLOL TARTRATE 50 MG TABLET (FP) PO SCH ×2 (13:09→22:06)
[2017-09-06] MEDS ORDERED: PT OWN MED DRAWER 7, Y5N ONE ×3 (18:41→22:24)
[2017-09-06] MEDS: LATANOPROST 0.005% OPHTH SOLN 2.5ML BOTTLE OU SCH (22:07)
[2017-09-06] MEDS: [UNRECOGNIZED DRUG - OTHER] PO SCH ×2 (22:14→22:45)
[2017-09-07] MEDS: PRAMIPEXOLE DIHYDROCHLORIDE 0.25 MG TABLET PO SCH ×2 (06:34→15:23)
[2017-09-07] MEDS: METOPROLOL TARTRATE 50 MG TABLET (FP) PO SCH (06:34)
[2017-09-07 07:33] LABS: BASO % 0.4 % (0-2.0); EOS % 0.4 % (0-4.5); HEMATOCRIT 47.6 % (35.4-49); HEMOGLOBIN 15.7 GM/dL (11.7-16.9); MCH 30.3 pg (25.7-33.7); MEAN CELL VOLUME 91.9 fl (80-96); MEAN PLT VOLUME 9.9 fl (7.5-11.1); MONO % 7.5 % (3.8-10.2); NEUT % 78.7 % (42.8-82.8); PLATELET COUNT 161 K/MM3 (134-434); RBC 5.17 M/mm3 (4.00-5.60); RDW 14.8 % (11.9-15.9); WHITE BLOOD COUNT 12.6 K/mm3 (4.0-10.0)
[2017-09-07 08:12] LABS: ANION GAP 9 (8-16); BLOOD UREA NITROGEN 44 mg/dL (7-18); CALCIUM 8.5 mg/dL (8.5-10.1); CHLORIDE 107 mmol/L (98-107); CO2 23 mmol/L (21-32); GLUCOSE,RANDOM 107 mg/dL (74-106); POTASSIUM 4.6 mmol/L (3.5-5.1); SODIUM 139 mmol/L (136-145)
[2017-09-07 08:14] LABS: CREATININE 2.2 mg/dL (0.7-1.3)
[2017-09-07] MEDS: CARBIDOPA/LEVODOPA 25/100 TABLET (FP) PO SCH ×3 (08:23→19:47)
[2017-09-07] MEDS: APIXABAN 5 MG TABLET PO SCH (08:23)
[2017-09-07] MEDS ORDERED: SODIUM CHLORIDE 1,000 ML IV SCH (08:30)
[2017-09-07] MEDS: LACTOBACILLUS ACIDOPHILUS 1 TABLET PO SCH (09:31)
[2017-09-07] MEDS: AMANTADINE HCL 100 MG TABLET PO SCH (09:32)
[2017-09-07] MEDS: PATIENT'S OWN MEDICATION (NON-FORMULARY) (Rotigotine [Neupro] 1 EACH) TD SCH (09:35)
[2017-09-07] MEDS: TIMOLOL 0.5% OPHTHALMIC SOL 5 ML BOTTLE OU SCH (09:35)
--- NOTE | 2017-09-07 10:01 | PN ---
Progress Note, Physician History of Present Illness: No CV complaints Tele: AFib with RVR to 110 - Current Medication List Current Medications: Active Medications Amantadine HCl (Symmetrel -) 100 mg PO BID [facility] Last Admin: 09/07/17 09:32 Dose: 100 mg Apixaban (Eliquis -) 5 mg PO BID@0800,2000 [facility] Last Admin: 09/07/17 08:23 Dose: 5 mg Carbidopa/Levodopa (Sinemet 25/100 -) 1.5 each PO TID@0800,1300,1900 [facility] Last Admin: 09/07/17 08:23 Dose: 1.5 each Lactobacillus Acidophilus (Bacid -) 1 cap PO DAILY [facility] Last Admin: 09/07/17 09:31 Dose: 1 cap Latanoprost (Xalatan 0.005% Eye Drops -) 1 drop OU HS [facility] Last Admin: 09/06/17 22:07 Dose: 1 drop Metoprolol Tartrate (Lopressor Injection -) 5 mg IVPUSH Q4H PRN PRN Reason: FOR HR OVER 130 & SBP OVER 100 Metoprolol Tartrate (Lopressor -) 50 mg PO TID [facility] Last Admin: 09/07/17 06:34 Dose: 50 mg [facility] Own Med ( Rasagiline Mesylate [Azilect] 1 Mg) 1 mg PO HS [facility] Last Admin: 09/06/17 22:45 Dose: 1 mg Non-Formulary Medication (Rotigotine [Neupro]) 1 each TD DAILY [facility] Last Admin: 09/07/17 09:35 Dose: 1 each Ondansetron HCl (Zofran Odt -) 4 mg SL Q8H PRN PRN Reason: NAUSEA Last Admin: 09/05/17 12:32 Dose: 4 mg Pramipexole Dihydrochloride (Mirapex -) 0.25 mg PO TID [facility] Last Admin: 09/07/17 06:34 Dose: 0.25 mg Timolol Maleate (Timoptic 0.5%) 1 drop OU DAILY [facility] Last Admin: 09/07/17 09:35 Dose: 1 drop - Objective Vital Signs: Vital Signs Temperature 97.0 F L 09/07/17 06:00 Pulse Rate 116 H 09/07/17 06:00 Respiratory Rate 20 09/07/17 06:00 Blood Pressure 108/68 09/07/17 06:00 O2 Sat by Pulse Oximetry (%) 98 09/06/17 21:00 Constitutional: Yes: No Distress, Calm Eyes: Yes: Conjunctiva Clear HENT: Yes: WNL Neck: Yes: WNL Cardiovascular: Yes: Tachycardia, Pulse Irregular Respiratory: Yes: CTA Bilaterally Gastrointestinal: Yes: WNL Musculoskeletal: Yes: WNL Extremities: Yes: WNL Edema: No Labs: CBC, BMP 09/07/17 07:12 09/07/17 07:12 INR, PTT INR 1.05 (0.82-1.09) 09/03/17 18:40 Assessment/Plan 77 yo with PMH of Parkinson's disease and CVA 2012 who p/w increased LE weakness. New onset atrial fib/flutter -rate remains fast, will increase to metoprolol succinate to 100mg PO BID, cont tele - + hx of prior cva. started and tolerating AC with eliquis at 5mg BID (Creat > 1.5 but not >80yo and <60kg). new systolic dysfunction/heart failure - systolic dysfunction likely tachymyopathy, but will need to rule out ischemic etiology as mentioned below. -appears euvolemic today, creat 2.2 today. Continue to Hold on Lasix today Abnormal troponin - intermediate trop elevation with flat trend, likely demand. But in setting of new systolic dysfunction will need stress test once clinically stable.
[2017-09-07] MEDS ORDERED: PT OWN MED DRAWER 7, Y5N ONE ×3 (10:32→20:26)
[2017-09-07 10:42] VITALS: PULSE 105
[2017-09-07] MEDS ORDERED: ALBUTEROL SO4 0.083% IH SOL 2.5 MG/3 ML VIAL.NEB. NEB ONE (11:15)
--- NOTE | 2017-09-07 11:21 | PN ---
Progress Note, Physician Chief Complaint: Pt lying in bed. appears sob when talking. On O2 via NC. He reports mild sob today. denies any chest pain, lightheadedness, n/v/d, fever/chills or unilateral weakness. - Current Medication List Current Medications: Active Medications Amantadine HCl (Symmetrel -) 100 mg PO BID [facility] Last Admin: 09/07/17 09:32 Dose: 100 mg Apixaban (Eliquis -) 5 mg PO BID@0800,2000 [facility] Last Admin: 09/07/17 08:23 Dose: 5 mg Carbidopa/Levodopa (Sinemet 25/100 -) 1.5 each PO TID@0800,1300,1900 [facility] Last Admin: 09/07/17 08:23 Dose: 1.5 each Latanoprost (Xalatan 0.005% Eye Drops -) 1 drop OU HS [facility] Last Admin: 09/06/17 22:07 Dose: 1 drop Metoprolol Succinate (Toprol Xl -) 100 mg PO BID [facility] Metoprolol Tartrate (Lopressor Injection -) 5 mg IVPUSH Q4H PRN PRN Reason: FOR HR OVER 130 & SBP OVER 100 [facility] ( Rasagiline Mesylate [Azilect] 1 Mg) 1 mg PO HS [facility] Last Admin: 09/06/17 22:45 Dose: 1 mg Non-Formulary Medication (Rotigotine [Neupro]) 1 each TD DAILY [facility] Last Admin: 09/07/17 09:35 Dose: 1 each Ondansetron HCl (Zofran Odt -) 4 mg SL Q8H PRN PRN Reason: NAUSEA Last Admin: 09/05/17 12:32 Dose: 4 mg Pramipexole Dihydrochloride (Mirapex -) 0.25 mg PO TID [facility] Last Admin: 09/07/17 06:34 Dose: 0.25 mg Timolol Maleate (Timoptic 0.5%) 1 drop OU DAILY [facility] Last Admin: 09/07/17 09:35 Dose: 1 drop - Objective Vital Signs: Vital Signs Temperature 98.0 F 09/07/17 10:00 Pulse Rate 105 H 09/07/17 10:00 Respiratory Rate 18 09/07/17 10:00 Blood Pressure 103/66 09/07/17 10:00 O2 Sat by Pulse Oximetry (%) 98 04/14/18 21:00 Constitutional: Yes: Well Nourished, No Distress, Calm Cardiovascular: Yes: Tachycardia, Pulse Irregular Respiratory: Yes: Regular, On Nasal O2, Rhonchi (scattered), SOB. No: Accessory Muscle Use, Tachypnea, Wheezes Gastrointestinal: Yes: WNL, Normal Bowel Sounds, Soft. No: Distention, Tenderness Genitourinary: Yes: WNL Extremities: Yes: Erythema (chronic, rle) Edema: Yes Edema: LLE: Trace, RLE: Trace Neurological: Yes: WNL, Alert, Oriented Psychiatric: Yes: WNL, Alert, Oriented Labs: CBC, BMP 09/07/17 07:12 09/07/17 07:12 INR, PTT INR 1.05 (0.82-1.09) 09/03/17 18:40 - ....Imaging Chest X-ray: Report Reviewed (no acute changes) Ultrasound: Report Reviewed (b/l le duplex neg) Problem List - Problems (1) New onset atrial flutter Code(s): I48.92 - UNSPECIFIED ATRIAL FLUTTER (2) Elevated troponin I level Code(s): R74.8 - ABNORMAL LEVELS OF OTHER SERUM ENZYMES (3) Parkinson disease Code(s): G20 - PARKINSON'S DISEASE (4) Cellulitis Code(s): L03.90 - CELLULITIS, UNSPECIFIED Qualifiers: Site of cellulitis: extremity Site of cellulitis of extremity: lower extremity Laterality: right Qualified Code(s): L03.115 - Cellulitis of right lower limb (5) History of CVA (cerebrovascular accident) Code(s): Z86.73 - PRSNL HX OF TIA (TIA), AND CEREB INFRC W/O RESID DEFICITS (6) KELLY (acute kidney injury) Code(s): N17.9 - ACUTE KIDNEY FAILURE, UNSPECIFIED (7) Atrial flutter Code(s): I48.92 - UNSPECIFIED ATRIAL FLUTTER (8) Heart failure Code(s): I50.9 - HEART FAILURE, UNSPECIFIED Qualifiers: Heart failure type: systolic Heart failure chronicity: acute Qualified Code(s): I50.21 - Acute systolic (congestive) heart failure (9) Leukocytosis Code(s): D72.829 - ELEVATED WHITE BLOOD CELL COUNT, UNSPECIFIED (10) Positive blood culture Code(s): R78.81 - BACTEREMIA Assessment/Plan (1) New onset atrial flutter Assessment/Plan: new onset, rate slightly improving bp wnl, pt with sob today echo reveals reduced lvef tsh wnl case discussed with , cardiology, metoprolol adjusted eliquis tele cardiology following Discuss w/ ICU for close monitoring Code(s): I48.92 - UNSPECIFIED ATRIAL FLUTTER (2) Elevated troponin I level Assessment/Plan: trop trending down possibly demand ischemia cardiology following Code(s): R74.8 - ABNORMAL LEVELS OF OTHER SERUM ENZYMES (3) Parkinson disease Assessment/Plan: chronic, chronic LLE weakness over few months followed by oupt neurologist continue current management neurology following PT as tolerated Code(s): G20 - PARKINSON'S DISEASE (4) Cellulitis Assessment/Plan: resolved at baseline, venous stasis of rle venous duplex b/l neg Code(s): L03.90 - CELLULITIS, UNSPECIFIED Qualifiers: Site of cellulitis: extremity Site of cellulitis of extremity: lower extremity Laterality: right Qualified Code(s): L03.115 - Cellulitis of right lower limb (5) History of CVA (cerebrovascular accident) Assessment/Plan: continue ASA Code(s): Z86.73 - PRSNL HX OF TIA (TIA), AND CEREB INFRC W/O RESID DEFICITS (6) KELLY (acute kidney injury) Assessment/Plan: trending up suspect prerenal secondary to hypoperfusion/afib nephrology consulted for further management IVF per nephrology/cardiology Code(s): N17.9 - ACUTE KIDNEY FAILURE, UNSPECIFIED (7) Heart failure Assessment/Plan: acute, reduced lvef stress test outpt when clinically stable cardiology following Code(s): I50.9 - HEART FAILURE, UNSPECIFIED Qualifiers: Heart failure type: systolic Heart failure chronicity: acute Qualified Code(s): I50.21 - Acute systolic (congestive) heart failure (9) Leukocytosis Assessment/Plan: +blood culture, staph coagneg trend up today, pt afebrile ID following Code(s): D72.829 - ELEVATED WHITE BLOOD CELL COUNT, UNSPECIFIED (10) Positive blood culture Assessment/Plan: as above possibly contaminant per ID Code(s): R78.81 - BACTEREMIA
--- NOTE | 2017-09-07 12:12 | PN ---
Progress Note (short form) - Note Progress Note: feels well still in rapid afib HR over 100 Vital Signs Period Temp Pulse Resp BP Sys/Marino Pulse Ox Last 24 Hr 97.0 F-98.0 F 105-122 18-20 103-157/66-95 98-98 cor-irreg, tachy lungs clear abd soft,nt ext no edema mild venous stasis CBC, BMP 09/07/17 07:12 09/07/17 07:12 Microbiology 09/03/17 18:00 Blood - Peripheral Venous Blood Culture - Preliminary Staphylococcus Coagulase Neg 09/03/17 18:00 Blood - Peripheral Venous Blood Culture - Preliminary NO GROWTH OBTAINED AFTER 72 HOURS, INCUBATION TO CONTINUE FOR 2 DAYS. 09/03/17 18:00 Urine - Urine Clean Catch Urine Culture - Final NO GROWTH OBTAINED a/p blood culture isolate is molt likely skin contaminant- one of four bottles , positive after 72 hours no need for further antibiotics cellulitis appears resolved afib renal insufficiency cardiology f/u ongoing please call back if needed d/w family at bedside Problem List - Problems (1) Positive blood culture Code(s): R78.81 - BACTEREMIA (2) Weakness Code(s): R53.1 - WEAKNESS (3) Cellulitis Code(s): L03.90 - CELLULITIS, UNSPECIFIED Qualifiers: Site of cellulitis: extremity Site of cellulitis of extremity: lower extremity Laterality: right Qualified Code(s): L03.115 - Cellulitis of right lower limb
--- NOTE | 2017-09-07 16:07 | CON.PULM ---
Consult Consult Specialty:: PULM/CCM Referred by:: DUY Reason for Consultation:: SOB - History of Present Illness Chief Complaint: weakness History of Present Illness: 77 M, Parkinson's disease and CVA 2011. Admitted via the ER due to increasing leg weakness over the past few months. Apparent acute worsening to the point he was unable to walk. Family reports changes to the appearance of his legs, dryness and redness. He reports severe numbness to right foot and moderate to left foot. CTA: No PE, small bilateral pleural effusions, no mass or nodules - History Source History Provided By: Patient Limitations to Obtaining History: Poor Historian - Alcohol/Substance Use Hx Alcohol Use: No - Smoking History Smoking history: Unknown if ever smoked Have you smoked in the past 12 months: No Aproximately how many cigarettes per day: 0 Home Medications - Allergies Allergies/Adverse Reactions: Allergies Allergy/AdvReac Type Severity Reaction Status Date / Time No Known Allergies Allergy Verified 09/03/17 16:27 - Home Medications Home Medications: Ambulatory Orders Pramipexole Dihydrochloride [Mirapex -] 0.75 mg PO DAILY 02/07/12 Rasagiline Mesylate [Azilect] 1 mg PO HS 02/07/12 Aspirin Coated [Ecotrin] 325 mg PO DAILY #30 tablet. 02/09/12 Latanoprost 0.005% Eye Drops [Xalatan 0.005% Eye Drops -] 1 drop OU HS 02/26/17 Rotigotine [Neupro] 1 each TD DAILY 02/26/17 Amantadine HCl [Amantadine] 100 mg PO BID 09/03/17 Carbidopa/Levodopa [Carbidopa-Levodopa 25-100 Tab] 1.5 each PO TID 09/03/17 Timolol 0.5% [Timoptic 0.5%] 1 drop OU DAILY 09/04/17 Review of Systems - Review of Systems Constitutional: reports: Lethargy, Malaise, Weakness. denies: Chills, Fever, Night Sweats, Unintentional Wgt. Loss Eyes: reports: No Symptoms HENT: reports: No Symptoms Neck: reports: No Symptoms Cardiovascular: reports: No Symptoms. denies: Chest Pain, Edema, Palpitations, Shortness of Breath Respiratory: reports: No Symptoms. denies: Cough, Hemoptysis, Orthopnea, PND, Snoring, SOB, SOB on Exertion, Wheezing Gastrointestinal: reports: No Symptoms Genitourinary: reports: No Symptoms Breasts: reports: No Symptoms Reported Musculoskeletal: reports: No Symptoms Integumentary: reports: No Symptoms Neurological: reports: No Symptoms Endocrine: reports: No Symptoms Hematology/Lymphatic: reports: No Symptoms Psychiatric: reports: No Symptoms Physical Exam Vital Sings: Vital Signs Temperature 98.0 F 09/07/17 10:00 Pulse Rate 105 H 09/07/17 10:00 Respiratory Rate 18 09/07/17 10:00 Blood Pressure 103/66 09/07/17 10:00 O2 Sat by Pulse Oximetry (%) 98 09/07/17 09:00 Constitutional: Yes: Well Nourished, No Distress Eyes: Yes: Conjunctiva Clear, EOM Intact HENT: Yes: Atraumatic, Normocephalic Neck: Yes: Supple, Trachea Midline Cardiovascular: Yes: Regular Rate and Rhythm Respiratory: Yes: CTA Bilaterally, On Nasal O2. No: Accessory Muscle Use, Cough , Rales, Rhonchi, SOB, Stridor, Tachypnea, Wheezes ...Inspection: Yes: WNL ...Clubbing: No Gastrointestinal: Yes: Normal Bowel Sounds, Soft Renal/: Yes: WNL Breast(s): Yes: WNL Musculoskeletal: Yes: WNL Extremities: Yes: WNL Edema: No Peripheral Pulses WNL: Yes Integumentary: Yes: WNL Neurological: Yes: WNL, Alert, Oriented ...Motor Strength: WNL Psychiatric: Yes: WNL, Alert, Oriented Labs: CBC, BMP 09/07/17 07:12 09/07/17 07:12 Imaging - Results Chest X-ray: Report Reviewed, Image Reviewed Cat Scan: Report Reviewed, Image Reviewed Problem List - Problems (1) Pleural effusion Code(s): J90 - PLEURAL EFFUSION, NOT ELSEWHERE CLASSIFIED (2) KELLY (acute kidney injury) Code(s): N17.9 - ACUTE KIDNEY FAILURE, UNSPECIFIED (3) CHF (congestive heart failure) Code(s): I50.9 - HEART FAILURE, UNSPECIFIED Qualifiers: Heart failure chronicity: acute (4) History of CVA (cerebrovascular accident) Code(s): Z86.73 - PRSNL HX OF TIA (TIA), AND CEREB INFRC W/O RESID DEFICITS (5) Parkinson disease Code(s): G20 - PARKINSON'S DISEASE (6) Weakness Code(s): R53.1 - WEAKNESS Assessment/Plan Suspect BYRON No PE on CTA O2 as needed Renal evaluation called Does not appear to be in CHF, would consider IV Hydration Daily weight Strict I&O Can be safely monitored on Cardiac Telemetry for now Please call for any change in status Will follow Dr Oconnell
--- NOTE | 2017-09-07 16:58 | PN ---
Progress Note (short form) - Note Progress Note: discussed with family as to patient's current decline. He has not been eating or drinking well, has been very confused (normally very oriented and alert), very tired. As focus with admission had been on his new onset aflutter and CHF (global hypokinesis on echo), with treatment with diuretic and rate control, given now that his diuretics need to be held (as creatinine had increased to 2.2 ), family insistent on tertiary care center for further treatment. Explained to family (2 daughters and brother in law) that decline may be due to another reason, like an occult infection (although positive blood culture was felt to be contaminent), but still insistent. Discussed with cardiology, and given echo with global dysfunction, would not be unreasonable to transfer to tertiary cardiac care unit, so will transfer to [facility].
[2017-09-07] MEDS ORDERED: PIPERACILLIN/TAZOB 2.25 GM/50 ML PREMIX BAG IVPB SCH (18:00)
[2017-09-07] MEDS ORDERED: PIPERACILLIN/TAZOB 2.25 GM 2.25 GM in DEXTROSE 5%-WATER - 50 ML IVPB SCH (18:15)
[2017-09-07] MEDS ORDERED: PIPERACILLIN/TAZOBACTAM 2.25 GM VIAL IVPB ONE (19:07)
[2017-09-07] MEDS ORDERED: DEXTROSE 5%-WATER - 50 ML IVPB ONE (19:07)
[2017-09-07] MEDS ORDERED: MUPIROCIN 2% TOPICAL OINTMENT FOR DECOLONIZATION NS SCH (22:00)
[2017-09-07] MEDS ORDERED: CHLORHEXIDINE GLUCONATE 4% CLEANSER FOR DECOLONIZATION TP SCH (22:00)
[2017-09-07 22:16] VITALS: BP 96/70; TEMP 97.2
--- NOTE | 2017-09-08 09:01 | DS ---
Physical Examination Vital Signs: Vital Signs Temperature 97.2 F L 09/07/17 20:38 Pulse Rate 105 H 09/07/17 20:38 Respiratory Rate 20 09/07/17 20:38 Blood Pressure 96/70 09/07/17 20:38 O2 Sat by Pulse Oximetry (%) 98 09/07/17 09:00 Labs: CBC, BMP 09/07/17 07:12 09/07/17 07:12 Discharge Summary Reason For Visit: ELEVATED TROPONIN I LEVEL, HEART FAILURE Hospital Course: is a 77 year old male who was admitted for increasing lle weakness. Neurology was consulted, to continue PT and current management of PD. 1 bottle of positive blood culture stag coag neg. ID was consulted and no further work up needed as thought to be contaminant. Pt initially received rocephin for cellulites which resolved. Upon admission, pt found to be in new onset aflutter hr in 120s, Cardiology consulted and pt has been on metoprolol with mild improvement. Pt remained asymptomatic until yesterday pt became sob and lethargic. KELLY also worsening. ICU evaluated and pt transfered to [facility] per family wish. Condition: Fair - Instructions Referrals: Sage Leong MD [Primary Care Provider] - Disposition: TRANSFER ACUTE CARE/OTHER HOSP - Home Medications Comprehensive Discharge Medication List: Ambulatory Orders Pramipexole Dihydrochloride [Mirapex -] 0.75 mg PO DAILY 02/07/12 Rasagiline Mesylate [Azilect] 1 mg PO HS 02/07/12 Latanoprost 0.005% Eye Drops [Xalatan 0.005% Eye Drops -] 1 drop OU HS 02/26/17 Rotigotine [Neupro] 1 each TD DAILY 02/26/17 Amantadine HCl [Amantadine] 100 mg PO BID 09/03/17 Carbidopa/Levodopa [Carbidopa-Levodopa 25-100 Tab] 1.5 each PO TID 09/03/17 Timolol 0.5% [Timoptic 0.5%] 1 drop OU DAILY 09/04/17 Apixaban [Eliquis -] 5 mg PO BID@0800,2000 tablet 09/07/17 Lactobacillus Acidophilus [Bacid -] 1 cap PO DAILY cap 09/07/17 Metoprolol Succinate [Toprol XL -] 100 mg PO BID tab.sr.24h 09/07/17 Mupirocin Ointment [Bactroban Ointment (For Decolonization) -] 1 applic NS BID applic 09/07/17 Piperacillin/Tazob 2.25 gm [Zosyn 2.25GM Ivpb (Premix)] 2.25 gm IVPB Q8H-IV bag 09/07/17
--- NOTE | 2017-09-08 23:22 | PN ---
Progress Note (short form) - Note Progress Note: Agree with MARTINE Hamlin's Assessment and plan
== END 2017-09-07 20:45 | disposition short-term general hospital (02) | DRG 308 ==
LOC: JER 15:43 → JERBED 21:05 → J4W 09-04 16:44
PROVIDERS: ADMIT Internal Medicine; ATTEND Internal Medicine
DX: I48.91 Unspecified atrial fibrillation (principal); I50.21 Acute systolic (congestive) heart failure; L03.115 Cellulitis of right lower limb; I24.8 Other forms of acute ischemic heart disease; N17.9 Acute kidney failure, unspecified; Z86.73 Personal history of transient ischemic attack (TIA), and cerebral infarction without residual deficits; I48.92 Unspecified atrial flutter; G20 Parkinson's disease; I45.10 Unspecified right bundle-branch block; I87.2 Venous insufficiency (chronic) (peripheral)
CPT/HCPCS: 36415; 70450-TC; 71045-TC-FY; 71275-TC; 72100-TC-FY; 80048; 80053; 81003; 82550; 83605; 83735; 83880; 84100; 84443; 84484; 85025; 85027; 85610; 85730; 87040; 87086; 87186; 93005; 93010; 93306-TC; 93970-TC; 94010; 94640; 97116-GP; 97161-GP; 99285-25; J7030; Q0162